=== PATIENT | female | born 1975 | race Caucasian/White ===

== ENCOUNTER → 2017-01-30 | Outpatient (CLI) | payer BC, OTHER ==
[~2017-01-30] MED LIST: CYCL10TA9 PO
--- NOTE | 2017-01-30 16:08 | Diagnostic Imaging Report ---
EXAMINATION: Bilateral diagnostic mammogram with a Computer Aided Detection (CAD) system. INDICATION: Palpable lump in the medial aspect of the left breast. COMPARISON: 12/16/2010. FINDINGS: The breasts are composed of heterogeneously dense parenchyma which may decrease mammographic sensitivity. The medial left breast palpable area was marked with no underlying abnormality seen. IMPRESSION: Dense breasts which may decrease mammographic sensitivity. An ultrasound evaluation is pending. ACR BI-RADS Category 0: Incomplete. (Needs additional imaging evaluation). Result letter will be mailed to the patient. Note: At least 10% of breast cancer is not imaged by mammography. Dictated by: Dictated on workstation # [id number]
--- NOTE | 2017-01-30 16:17 | Diagnostic Imaging Report ---
EXAMINATION: Bilateral breast ultrasound. INDICATION: Dense breasts. Palpable lump in the medial aspect of the left breast. FINDINGS: The retroareolar region and four quadrants of each breast were scanned with no suspicious or solid mass seen. At the 10 o'clock zone 7 cm from the nipple, there is a simple cyst measuring 1.2 cm in length. The palpable area in the medial aspect of the left breast was scanned with no underlying abnormality. IMPRESSION: No suspicious abnormality. Clinical followup of the palpable area is recommended. ACR BI-RADS Category 2: Benign findings. Result letter will be mailed to the patient. Note: At least 10% of breast cancer is not imaged by mammography. Dictated by: Dictated on workstation # [id number]
== END ==
LOC: RAD 08:11
PROVIDERS: ATTEND Nurse Practitioner Family
DX: N60.11 Diffuse cystic mastopathy of right breast (principal)
CPT/HCPCS: 77066

== ENCOUNTER 2017-05-11 11:20 | Emergency (ER) | payer BC ==
[~2017-05-11] VITALS: Ht 167.6 cm; Wt 47.6 kg
--- NOTE | 2017-05-11 11:37 | ED Abdominal Pain ---
General Chief Complaint: Abdominal/GI Problems Stated Complaint: LOWER ABD CRAMPS Nursing Triage Note: R sided abdomen pain, denies n/v/d Sepsis Screen: No Definite Risk Source of Information: Patient Exam Limitations: No Limitations History of Present Illness Time Seen By Provider: 11:35 Initial Comments To ER with right-sided abdominal pain colicky in nature that began this morning. This is in the lower abdomen. She states this began a few hours ago. No fevers or chills. No nausea or vomiting. No diarrhea. No dysuria. She' s had this pain about a year ago, it lasted for a couple hours and resolved on its own. She never had it evaluated. She does not have a regular physician. She is currently on her menstrual period. Severity/Quality: Moderate, Cramping Radiation: No Radiation Associated Symptoms: Denies Symptoms Allergies and Home Medications Allergies Coded Allergies: No Known Drug Allergies (Unverified , 10/12/13) Home Medications Cyclobenzaprine Hcl 10 Mg Tablet, 1 EACH PO Q8HR PRN, #7 Prescribed by: ALICIA HAGEN on 10/12/13 0977 Review of Systems Constitutional: see HPI EENTM: No Symptoms Reported Respiratory: No Symptoms Reported Cardiovascular: No Symptoms Reported Gastrointestinal: See HPI, Abdominal Pain Genitourinary: See HPI Musculoskeletal: no symptoms reported Skin: no symptoms reported Psychiatric/Neurological: No Symptoms Reported Endocrine: No Symptoms Reported Hematologic/Lymphatic: No Symptoms Reported Past Quairaf-Plyjoz-Rvghap Hx Patient Social History Alcohol Use: Denies Use Recreational Drug Use: No Recent Foreign Travel: No Contact w/Someone Who Travel: No Recent Infectious Disease Expo: No Immunizations Up To Date Date of Influenza Vaccine: Jun 07, 2013 Surgeries History of Surgeries: Yes (LAPROSCOPY FOR ADHESIONS) Respiratory History of Respiratory Disorde: No Cardiovascular History of Cardiac Disorders: No Neurological History of Neurological Disord: No Gastrointestinal History of Gastrointestinal Di: No Musculoskeletal History of Musculoskeletal Dis: No Endocrine History of Endocrine Disorders: No Cancer History of Cancer: No Psychosocial History of Psychiatric Problem: No Physical Exam Vital Signs VS - Last 72 Hours, by Label 05/11/17 11:30 Temp 98.9 Pulse 75 Resp 20 B/P (MAP) 145/92 Pulse Ox 99 Capillary Refill : Less Than 3 Seconds General Appearance: WD/WN, no apparent distress, moderate distress HEENT: PERRL/EOMI, normal ENT inspection Neck: non-tender, full range of motion Respiratory: normal breath sounds, no respiratory distress, no accessory muscle use Gastrointestinal: normal bowel sounds, soft, tenderness Extremities: normal range of motion, non-tender Neurologic/Psychiatric: alert, normal mood/affect, oriented x 3 Skin: normal color, warm/dry Progress/Results/Core Measures Results/Orders Lab Results Laboratory Tests Test 05/11/17 11:30 Range/Units White Blood Count 10.3 4.3-11.0 10^3/uL Red Blood Count 4.67 4.35-5.85 10^6/uL Hemoglobin 13.3 11.5-16.0 G/DL Hematocrit 41 35-52 % Mean Corpuscular Volume 87 80-99 FL Mean Corpuscular Hemoglobin 29 25-34 PG Mean Corpuscular Hemoglobin Concent 33 32-36 G/DL Red Cell Distribution Width 14.6 H 10.0-14.5 % Platelet Count 375 130-400 10^3/uL Mean Platelet Volume 9.9 7.4-10.4 FL Neutrophils (%) (Auto) 69 42-75 % Lymphocytes (%) (Auto) 21 12-44 % Monocytes (%) (Auto) 8 0-12 % Eosinophils (%) (Auto) 2 0-10 % Basophils (%) (Auto) 1 0-10 % Neutrophils # (Auto) 7.1 1.8-7.8 X 10^3 Lymphocytes # (Auto) 2.2 1.0-4.0 X 10^3 Monocytes # (Auto) 0.8 0.0-1.0 X 10^3 Eosinophils # (Auto) 0.2 0.0-0.3 10^3/uL Basophils # (Auto) 0.1 0.0-0.1 10^3/uL Urine Color RED H Urine Clarity VERY CLOUDY H Urine pH 5 5-9 Urine Specific [place] 1.020 1.016-1.022 Urine Protein 3+ H NEGATIVE Urine Glucose (UA) NEGATIVE NEGATIVE Urine Ketones NEGATIVE NEGATIVE Urine Nitrite NEGATIVE NEGATIVE Urine Bilirubin NEGATIVE NEGATIVE Urine Urobilinogen NORMAL NORMAL MG/DL Urine Leukocyte Esterase 3+ H NEGATIVE Urine RBC (Auto) 5+ H NEGATIVE Urine RBC TNTC H /HPF Urine WBC 10-25 H /HPF Urine Squamous Epithelial Cells RARE /HPF Urine Crystals NONE /LPF Urine Bacteria TRACE /HPF Urine Casts NONE /LPF Urine Mucus NEGATIVE /LPF Urine Culture Indicated YES Urine Test NEGATIVE NEGATIVE Sodium Level 136 135-145 MMOL/L Potassium Level 4.3 3.6-5.0 MMOL/L Chloride Level 106 98-107 MMOL/L Carbon Dioxide Level 16 L 21-32 MMOL/L Anion Gap 14 5-14 MMOL/L Blood Urea Nitrogen 8 7-18 MG/DL Creatinine 0.71 0.60-1.30 MG/DL Estimat Glomerular Filtration Rate > 60 BUN/Creatinine Ratio 11 Glucose Level 106 H 70-105 MG/DL Calcium Level 9.2 8.5-10.1 MG/DL Total Bilirubin 0.2 0.1-1.0 MG/DL Aspartate Amino Transf (AST/SGOT) 23 5-34 U/L Alanine Aminotransferase (ALT/SGPT) 11 0-55 U/L Alkaline Phosphatase 101 40-136 U/L Total Protein 7.5 6.4-8.2 GM/DL Albumin 4.3 3.2-4.5 GM/DL My Orders Orders - ALICIA HAGEN APRN Cbc With Automated Diff (05/11/17 11:34) Comprehensive Metabolic Panel (05/11/17 11:34) Ua Culture If Indicated (05/11/17 11:34) Saline Lock/Iv-Start (05/11/17 11:34) Ketorolac Injection (Toradol Injection) (05/11/17 11:45) Fentanyl Injection (Sublimaze Injection (05/11/17 11:45) Ct Abd/Pelvis Wo(Kidney Stone) (05/11/17 11:34) Hcg,Qualitative Urine (05/11/17 11:37) Urine Culture (05/11/17 11:30) Medications Given in ED Current Medications Medications Dose Ordered Sig/Fritz Route Start Time Stop Time Status Last Admin Dose Admin Fentanyl Citrate 50 mcg ONCE ONCE IVP 05/11/17 11:45 05/11/17 11:46 DC 05/11/17 11:57 50 MCG Ketorolac Tromethamine 30 mg ONCE ONCE IVP 05/11/17 11:45 05/11/17 11:46 DC 05/11/17 11:57 30 MG Vital Signs/I&O Vital Sign - Last 12Hours 05/11/17 11:30 Temp 98.9 Pulse 75 Resp 20 B/P (MAP) 145/92 Pulse Ox 99 Blood Pressure Mean: 109 Diagnostic Imaging Diagonstic Imaging: CT Comments NAME: IFRAH FRANCOIS [facility] REC#: [id number] PT STATUS: REG ER : 1975 PHYSICIAN: ALICIA HAGEN APRN ADMIT DATE: 05/11/17/ER Draft Date of Exam:05/11/17 CT ABD/PELVIS WO(KIDNEY STONE) PROCEDURE: CT urinary tract, rule out kidney stone. TECHNIQUE: Multiple contiguous axial images were obtained through the abdomen and pelvis without the use of intravenous contrast. INDICATION: Right flank pain. FINDINGS: There are no opaque ureteral stones. There is punctate intrarenal stone within left lower pole calyx at 2 mm. The right kidney is without calculus. No perinephric edema or fluid collection. There is no appendicitis and there is no diverticulitis. The uterus, adnexa and unopacified urinary bladder had a normal appearance. There is no abscess, hematoma or other fluid collection. The liver, spleen, adrenals, pancreas and gallbladder all unremarkable. The aorta is nonaneurysmal. There was no focal inflammatory process or evidence of edema. The osseous structures nonacute. No pneumatosis or free air. IMPRESSION: Left-sided intrarenal stone, no hydronephrosis or opaque ureteral calculi. No focal inflammatory process, obstructive features or acute abnormalities identified. Dictated on workstation # [id number] Dict: 05/11/17 1157 Trans: 05/11/17 1206 [id number] Interpreted by: SHAE LESTER Electronically signed by: Departure Impression Impression: Primary Impression: Urinary tract infection Additional Impression: Abdominal cramping Disposition: 01 HOME, SELF-CARE Condition: Stable Departure-Patient Inst. Decision time for Depature: 12:09 Referrals: NO,LOCAL PHYSICIAN (PCP/Family) Primary Care Physician Patient Instructions: Urinary Tract Infection, Adult (DC) Add. Discharge Instructions: 1. Antibiotics as directed 2. Return to ER for any concerns 3. All discharge instructions reviewed with patient and/or family. Voiced understanding. Scripts Sulfamethoxazole/Trimethoprim (Bactrim Ds Tablet) 1 Each Tablet 1 EACH PO BID, #10 TAB Prov: ALICIA HAGEN APRN 05/11/17 Hydrocodone/Acetaminophen ([place] 5-325 Tablet) 1 Each Tablet 1 EACH PO Q4H Y for PAIN-SEVERE TO BREAKTHROUGH, #10 TAB Do not fill unless the Bactrim is also filled Prov: ALICIA HAGEN APRN 05/11/17 ALICIA HAGEN APRN May 11, 2017 11:36
[2017-05-11 11:40] LABS: BASOPHILS # (AUTO) 0.1 10^3/uL (0.0-0.1); BASOPHILS % (AUTO) 1 % (0-10); EOSINOPHILS # (AUTO) 0.2 10^3/uL (0.0-0.3); EOSINOPHILS % (AUTO) 2 % (0-10); LYMPHOCYTES # (AUTO) 2.2 X 10^3 (1.0-4.0); LYMPHOCYTES % (AUTO) 21 % (12-44); MEAN CORPUSCULAR HEMOGLOBIN 29 PG (25-34); MEAN CORPUSCULAR HGB CONC 33 G/DL (32-36); MEAN CORPUSCULAR VOLUME 87 FL (80-99); MEAN PLATELET VOLUME 9.9 FL (7.4-10.4); MONOCYTES # (AUTO) 0.8 X 10^3 (0.0-1.0); MONOCYTES % (AUTO) 8 % (0-12); NEUTROPHILS # (AUTO) 7.1 X 10^3 (1.8-7.8); NEUTROPHILS % (AUTO) 69 % (42-75); PLATELET COUNT 375 10^3/uL (130-400); RED BLOOD COUNT 4.67 10^6/uL (4.35-5.85); RED CELL DISTRIBUTION WIDTH 14.6 % (10.0-14.5); WHITE BLOOD COUNT 10.3 10^3/uL (4.3-11.0)
[2017-05-11 11:41] LABS: BILIRUBIN,URINE NEGATIVE (NEGATIVE); KETONES,URINE NEGATIVE (NEGATIVE); LEUKOCYTE ESTERASE ,URINE 3+ (NEGATIVE); NITRITE,URINE NEGATIVE (NEGATIVE); PH,URINE 5 (5-9); PROTEIN,URINE 3+ (NEGATIVE); UROBILINOGEN,URINE NORMAL (NORMAL)
[2017-05-11] MEDS ORDERED: fentaNYL INJECTION 100 MCG/2 ML AMP IVP ONE (11:45)
[2017-05-11] MEDS ORDERED: KETOROLAC 30 MG/ML VIAL IVP ONE (11:45)
[2017-05-11 11:48] LABS: SQUAMOUS EPITHELIAL CELL,UR RARE /HPF
[2017-05-11 12:05] LABS: ALANINE AMINOTRANSFERASE 11 U/L (0-55); ALBUMIN 4.3 GM/DL (3.2-4.5); ANION GAP 14 MMOL/L (5-14); ASPARTATE AMINO TRANSFERASE 23 U/L (5-34); BILIRUBIN,TOTAL 0.2 MG/DL (0.1-1.0); BLOOD UREA NITROGEN 8 MG/DL (7-18); BUN/CREATININE RATIO 11; CALCIUM 9.2 MG/DL (8.5-10.1); CARBON DIOXIDE 16 MMOL/L (21-32); CHLORIDE 106 MMOL/L (98-107); CREATININE SERUM 0.71 MG/DL (0.60-1.30); GFR ESTIMATED > 60; GLUCOSE 106 MG/DL (70-105); POTASSIUM 4.3 MMOL/L (3.6-5.0); SODIUM 136 MMOL/L (135-145); TOTAL PROTEIN 7.5 GM/DL (6.4-8.2)
--- NOTE | 2017-05-11 12:06 | Diagnostic Imaging Report ---
PROCEDURE: CT urinary tract, rule out kidney stone. TECHNIQUE: Multiple contiguous axial images were obtained through the abdomen and pelvis without the use of intravenous contrast. INDICATION: Right flank pain. FINDINGS: There are no opaque ureteral stones. There is punctate intrarenal stone within left lower pole calyx at 2 mm. The right kidney is without calculus. No perinephric edema or fluid collection. There is no appendicitis and there is no diverticulitis. The uterus, adnexa and unopacified urinary bladder had a normal appearance. There is no abscess, hematoma or other fluid collection. The liver, spleen, adrenals, pancreas and gallbladder all unremarkable. The aorta is nonaneurysmal. There was no focal inflammatory process or evidence of edema. The osseous structures nonacute. No pneumatosis or free air. IMPRESSION: Left-sided intrarenal stone, no hydronephrosis or opaque ureteral calculi. No focal inflammatory process, obstructive features or acute abnormalities identified. Dictated by: Dictated on workstation # [id number]
[2017-05-11] MEDS ORDERED: SULF1TAB35 PO (12:11)
[2017-05-11] MEDS ORDERED: HYDR-757 PO (12:11)
[2017-05-11] MEDS ORDERED: morphine INJ 10 MG/ML 1ML (SYR OR VIAL) IVP ONE (12:30)
[2017-05-11] MEDS ORDERED: TRIM/SULFAMETH 160/800 (SEPTRA DS) TAB PO ONE (12:30)
[2017-05-11 12:31] VITALS: BP 142/90
== END 2017-05-11 12:30 | disposition home or self-care (01) ==
LOC: EDUNIT# 11:20 → ER 11:21
DX: N39.0 Urinary tract infection, site not specified (principal)
CPT/HCPCS: 36415; 74176; 80053; 81000; 84703; 85025; 87088; 96374; 96375

== ENCOUNTER → 2017-05-21 | Outpatient (CLI) | payer BC ==
[~2017-05-21] MED LIST changes: +HYDR-757 PO; +SULF1TAB35 PO
--- NOTE | 2017-05-21 19:52 | Diagnostic Imaging Report ---
Transabdominal and transvaginal pelvic ultrasound. INDICATION: Pelvic pain. FINDINGS: The uterus is 7.5 x 4.7 x 4.2 cm. The endometrial stripe is 9 mm in thickness. No focal masses are identified. The right ovary is 2.3 x 3.3 x 2.3 cm. The left ovary is 3.1 x 2.2 x 2.8 cm. Arterial and venous waveforms are demonstrated in both ovaries. Dominant follicle measuring 1.6 cm in the left ovary is seen. No concerning masses are identified. No significant free fluid or fluid collection in the abdomen or pelvis seen. IMPRESSION: Unremarkable exam. Dictated by: Dictated on workstation # [id number]
== END ==
LOC: RAD 13:58
PROVIDERS: ATTEND Nurse Practitioner Family
DX: R10.2 Pelvic and perineal pain (principal)
CPT/HCPCS: 76830; 76856

== ENCOUNTER 2018-01-03 14:07 | Emergency (ER) | payer BC ==
[~2018-01-03] VITALS: Ht 167.6 cm; Wt 48.1 kg
[2018-01-03 14:41] LABS: BILIRUBIN,URINE NEGATIVE (NEGATIVE); CLARITY,URINE CLEAR; COLOR,URINE YELLOW; GLUCOSE, URINE (UA) NEGATIVE (NEGATIVE); KETONES,URINE NEGATIVE (NEGATIVE); LEUKOCYTE ESTERASE ,URINE NEGATIVE (NEGATIVE); NITRITE,URINE NEGATIVE (NEGATIVE); PH,URINE 5 (5-9); PROTEIN,URINE NEGATIVE (NEGATIVE); UROBILINOGEN,URINE NORMAL (NORMAL)
[2018-01-03] MEDS ORDERED: TRAZ100T92 (14:42)
[2018-01-03] MEDS ORDERED: OXYB5TAB9 (14:42)
[2018-01-03 14:47] LABS: BACTERIA,URINE TRACE /HPF; SQUAMOUS EPITHELIAL CELL,UR 0-2 /HPF
--- NOTE | 2018-01-03 15:53 | ED GU-Female ---
General Chief Complaint: -Female Stated Complaint: FREQUENT URINATION, BURNING/IRRITATION, BACK PAIN Nursing Triage Note: ARRIVED VIA AMB TO ROOM 03. COMPLAINS OF BACK PAIN WITH FREQUENT URINATION WITH BURNING. Nursing Sepsis Screen: No Definite Risk Source: patient Exam Limitations: no limitations History of Present Illness Date Seen by Provider: Jan 03, 2018 Time Seen by Provider: 15:48 Initial Comments The patient is a 42-year-old white female who presents with a several week history of dysuria and frequency. She has seen her provider twice and had been placed on nasogastric her son and also given treatment for yeast. The Azo Gantrisin seemed to help but only briefly. She has had 2 previous UAs both of which showed no evidence of infection. She had a Pap smear 6 months ago which was normal. There has been no blood. Timing/Duration: getting worse Severity/Quality: moderate Allergies and Home Medications Allergies Coded Allergies: No Known Drug Allergies (Unverified , 10/12/13) Patient Home Medication List Home Medication List Reviewed: Yes Review of Systems Constitutional: see HPI, other (she conveys a sense of desperation) EENTM: no symptoms reported Respiratory: no symptoms reported Cardiovascular: no symptoms reported Gastrointestinal: no symptoms reported Genitourinary: burning, dysuria, frequency, urgency Musculoskeletal: back pain (in the area of the left sacroiliac joint) Skin: no symptoms reported Psychiatric/Neurological: No Symptoms Reported Endocrine: No Symptoms Reported Hematologic/Lymphatic: No Symptoms Reported Past Iylqine-Orqaof-Hchnbl Hx Patient Social History Recent Foreign Travel: No Contact w/Someone Who Travel: No Recent Infectious Disease Expo: No Immunizations Up To Date Date of Influenza Vaccine: Jun 07, 2013 Past Medical History Surgeries: Yes (LAPROSCOPY FOR ADHESIONS) Respiratory: No Cardiac: No Neurological: No Genitourinary: No Gastrointestinal: No Musculoskeletal: No Endocrine: No HEENT: No Cancer: No Did You Recieve Any Treatments: No Psychosocial: No Integumentary: No Physical Exam Vital Signs Vital Signs - First Documented 01/03/18 14:30 Temp 97.6 Pulse 79 Resp 18 B/P (MAP) 149/90 (109) Pulse Ox 100 O2 Delivery Room Air Capillary Refill : Less Than 3 Seconds General Appearance: mild distress HEENT: normal ENT inspection Neck: full range of motion Cardiovascular: normal peripheral pulses, regular rate, rhythm, no edema, no gallop, no JVD, no murmur Respiratory: chest non-tender, lungs clear, normal breath sounds, no respiratory distress, no accessory muscle use, respiratory distress Gastrointestinal: normal bowel sounds, non tender, soft, no organomegaly Back: normal inspection Extremities: normal range of motion, non-tender, normal inspection, no pedal edema, no calf tenderness, normal capillary refill, pelvis stable Neurologic/Psychiatric: foundry tender II-XII nml as tested, no motor/sensory deficits, alert, normal mood/affect, oriented x 3 Skin: normal color, warm/dry, cyanosis, cool, diaphoresis, pallor Progress/Results/Core Measures Suspected Sepsis Recent Fever Within 48 Hours: No Infection Criteria Present: Suspected New Infection New/Unexplained Altered Menta: No Sepsis Screen: No Definite Risk SIRS Temperature:97.6 Pulse: 79 Respiratory Rate: 18 Laboratory Tests 01/03/18 16:19: White Blood Count 8.7 Blood Pressure 149 /90 Mean: 109 Laboratory Tests 01/03/18 16:19: Creatinine 0.74, Platelet Count 397, Total Bilirubin 0.2 Results/Orders Lab Results Laboratory Tests Test 01/03/18 14:30 01/03/18 16:19 Range/Units Urine Color YELLOW Urine Clarity CLEAR Urine pH 5 5-9 Urine Specific [place] 1.010 L 1.016-1.022 Urine Protein NEGATIVE NEGATIVE Urine Glucose (UA) NEGATIVE NEGATIVE Urine Ketones NEGATIVE NEGATIVE Urine Nitrite NEGATIVE NEGATIVE Urine Bilirubin NEGATIVE NEGATIVE Urine Urobilinogen NORMAL NORMAL MG/DL Urine Leukocyte Esterase NEGATIVE NEGATIVE Urine RBC (Auto) NEGATIVE NEGATIVE Urine RBC NONE /HPF Urine WBC NONE /HPF Urine Squamous Epithelial Cells 0-2 /HPF Urine Crystals NONE /LPF Urine Bacteria TRACE /HPF Urine Casts NONE /LPF Urine Mucus NEGATIVE /LPF Urine Culture Indicated NO White Blood Count 8.7 4.3-11.0 10^3/uL Red Blood Count 4.81 4.35-5.85 10^6/uL Hemoglobin 13.8 11.5-16.0 G/DL Hematocrit 42 35-52 % Mean Corpuscular Volume 87 80-99 FL Mean Corpuscular Hemoglobin 29 25-34 PG Mean Corpuscular Hemoglobin Concent 33 32-36 G/DL Red Cell Distribution Width 16.1 H 10.0-14.5 % Platelet Count 397 130-400 10^3/uL Mean Platelet Volume 9.8 7.4-10.4 FL Neutrophils (%) (Auto) 66 42-75 % Lymphocytes (%) (Auto) 21 12-44 % Monocytes (%) (Auto) 11 0-12 % Eosinophils (%) (Auto) 2 0-10 % Basophils (%) (Auto) 1 0-10 % Neutrophils # (Auto) 5.7 1.8-7.8 X 10^3 Lymphocytes # (Auto) 1.8 1.0-4.0 X 10^3 Monocytes # (Auto) 0.9 0.0-1.0 X 10^3 Eosinophils # (Auto) 0.2 0.0-0.3 10^3/uL Basophils # (Auto) 0.0 0.0-0.1 10^3/uL Sodium Level 138 135-145 MMOL/L Potassium Level 3.9 3.6-5.0 MMOL/L Chloride Level 103 98-107 MMOL/L Carbon Dioxide Level 25 21-32 MMOL/L Anion Gap 10 5-14 MMOL/L Blood Urea Nitrogen 7 7-18 MG/DL Creatinine 0.74 0.60-1.30 MG/DL Estimat Glomerular Filtration Rate > 60 BUN/Creatinine Ratio 9 Glucose Level 102 70-105 MG/DL Calcium Level 9.5 8.5-10.1 MG/DL Total Bilirubin 0.2 0.1-1.0 MG/DL Aspartate Amino Transf (AST/SGOT) 16 5-34 U/L Alanine Aminotransferase (ALT/SGPT) 9 0-55 U/L Alkaline Phosphatase 102 40-136 U/L Total Protein 7.8 6.4-8.2 GM/DL Albumin 4.4 3.2-4.5 GM/DL My Orders Orders - MERLIN STEWART MD Ua Culture If Indicated (01/03/18 14:17) Ct Abdomen/Pelvis Wo (01/03/18 15:56) Cbc With Automated Diff (01/03/18 15:56) Comprehensive Metabolic Panel (01/03/18 15:56) Vital Signs/I&O 01/03/18 14:30 Temp 97.6 Pulse 79 Resp 18 B/P (MAP) 149/90 (109) Pulse Ox 100 O2 Delivery Room Air Capillary Refill : Less Than 3 Seconds Blood Pressure Mean: 109 Departure Communication (Admissions) Blood workup was basically normal as was the UA. CT scan showed only ovarian cyst and small amount of fluid in the pelvis. Impression Primary Impression: dysuria Disposition: 01 HOME, SELF-CARE Condition: Stable/Unchanged Departure-Patient Inst. Decision time for Depature: 16:58 Referrals: DEANA FRIAS MD (PCP/Family) Primary Care Physician Add. Discharge Instructions: Take Pyridium as directed. If symptoms persist consider consultation with gynecology and urology. Scripts Phenazopyridine HCl (Pyridium) 200 Mg Tablet 1 TAB PO 3 times a day, #10 Prov: MERLIN STEWART MD 01/03/18 MERLIN STEWART MD Jan 03, 2018 15:53
[2018-01-03 16:31] LABS: BASOPHILS % (AUTO) 1 % (0-10); EOSINOPHILS # (AUTO) 0.2 10^3/uL (0.0-0.3); EOSINOPHILS % (AUTO) 2 % (0-10); HEMATOCRIT 42 % (35-52); HEMOGLOBIN 13.8 G/DL (11.5-16.0); LYMPHOCYTES # (AUTO) 1.8 X 10^3 (1.0-4.0); LYMPHOCYTES % (AUTO) 21 % (12-44); MEAN CORPUSCULAR HEMOGLOBIN 29 PG (25-34); MEAN CORPUSCULAR HGB CONC 33 G/DL (32-36); MEAN CORPUSCULAR VOLUME 87 FL (80-99); MEAN PLATELET VOLUME 9.8 FL (7.4-10.4); MONOCYTES # (AUTO) 0.9 X 10^3 (0.0-1.0); MONOCYTES % (AUTO) 11 % (0-12); NEUTROPHILS # (AUTO) 5.7 X 10^3 (1.8-7.8); NEUTROPHILS % (AUTO) 66 % (42-75); PLATELET COUNT 397 10^3/uL (130-400); RED BLOOD COUNT 4.81 10^6/uL (4.35-5.85); RED CELL DISTRIBUTION WIDTH 16.1 % (10.0-14.5); WHITE BLOOD COUNT 8.7 10^3/uL (4.3-11.0)
--- NOTE | 2018-01-03 16:36 | Diagnostic Imaging Report ---
TECHNIQUE: Multiple contiguous axial images were obtained through the abdomen and pelvis without the use of intravenous contrast. INDICATION: Pelvic pain radiating into the posterior aspect of the pelvis, burning with urination approximately 2 weeks. History of appendectomy. EXAMINATION: CT abdomen and pelvis without contrast, 01/03/18. COMPARISON: 05/11/2017 FINDINGS: The ureters are difficult to follow but no obvious distal ureteral stones are seen on either side. There is no hydronephrosis on either side. The right kidney is somewhat prominent compared to the left. However, this was also present on prior examination. A punctate stone in the left kidney nonobstructive in nature is also noted. Urinary bladder grossly unremarkable. The uterus demonstrates prominence as the canal is filled with fluid. Cystic changes in both adnexa likely due to ovarian cysts. Some of these findings, however, could represent the small bowel loops in the immediate region. There is minimal free fluid in the pelvis, likely physiologic. The remaining visualized abdominal viscera limited in evaluation due to lack of contrast but no gross abnormality is seen in the liver or spleen. The adrenal glands and pancreas unremarkable. The gallbladder is not seen. It could be markedly contracted or due to previous surgery, correlate clinically. The appendix is not visualized; however, no inflammation is seen in the right lower quadrant. If there is continued clinical concern or elevated white count, postcontrast imaging could further characterize the region. Osseous structures demonstrate no evidence for acute disease. Lung bases clear. IMPRESSION: 1. Kidneys demonstrate no acute process. No hydronephrosis or ureteral stones appreciated. If there is concern for process such as pyelonephritis, postcontrast imaging could better characterize. 2. Fluid in the endometrial canal, perhaps physiologic with a small amount of free fluid, likely physiologic as well. Cystic changes in the ovaries noted. Given the focal pelvic pain, sonographic characterization of the pelvis is recommended. 3. Appendix not seen. It is likely obscured by the adjacent small bowel loops. If there is concern for appendicitis, post IV contrast administration imaging recommended. Dictated by: Dictated on workstation # [id number]
[2018-01-03 16:48] LABS: ALANINE AMINOTRANSFERASE 9 U/L (0-55); ALBUMIN 4.4 GM/DL (3.2-4.5); ALKALINE PHOSPHATASE 102 U/L (40-136); BILIRUBIN,TOTAL 0.2 MG/DL (0.1-1.0); BUN/CREATININE RATIO 9; CALCIUM 9.5 MG/DL (8.5-10.1); CARBON DIOXIDE 25 MMOL/L (21-32); CHLORIDE 103 MMOL/L (98-107); CREATININE SERUM 0.74 MG/DL (0.60-1.30); GFR ESTIMATED > 60; GLUCOSE 102 MG/DL (70-105); POTASSIUM 3.9 MMOL/L (3.6-5.0); SODIUM 138 MMOL/L (135-145); TOTAL PROTEIN 7.8 GM/DL (6.4-8.2)
[2018-01-03] MEDS ORDERED: PHEN-640 PO (17:02)
[2018-01-03 17:08] VITALS: BP 149/90
== END 2018-01-03 17:08 | disposition home or self-care (01) ==
LOC: EDUNIT# 14:07 → ER 14:08
DX: R30.0 Dysuria (principal); Z98.890 Other specified postprocedural states
CPT/HCPCS: 36415; 74176; 80053; 81000; 85025; 99283

== ENCOUNTER 2018-01-06 14:10 | Emergency (ER) | payer BC ==
[~2018-01-06] VITALS: Ht 167.6 cm; Wt 48.1 kg
[~2018-01-06 14:10] MED LIST changes: +OXYB5TAB9; +PHEN-640 PO; +TRAZ100T92
[2018-01-06] MEDS ORDERED: LIDOCAINE 2% VISCOUS 15 ML UDC PO ONE (14:30)
[2018-01-06] MEDS ORDERED: ANTACID SUSP 30 ML UDC (MYLANTA) PO ONE (14:30)
--- NOTE | 2018-01-06 14:32 | ED Abdominal Pain ---
General Chief Complaint: Abdominal/GI Problems Stated Complaint: BURNING STOMACH Source of Information: Patient Exam Limitations: No Limitations History of Present Illness Date Seen by Provider: January 06, 2018 Time Seen by Provider: 14:30 Initial Comments To ER with burning sensation in the epigastric area intermittently since yesterday. She's been on Pyridium for some urinary discomfort. She was seen here on 01/03/18 for dysuria with a normal CBC, normal CMP, normal urinalysis. She is still on the Pyridium and states that her urinary symptoms have resolved. She denies bowel changes. She does report some nausea and vomiting. She also had a CT scan done 3 days ago which showed only an ovarian cyst with a small amount of pelvic free fluid. Timing/Duration: 1-2 Days Severity/Quality: Moderate Location: Epigastric Radiation: No Radiation Activities at Onset: None Associated Symptoms: Nausea/Vomiting Allergies and Home Medications Allergies Coded Allergies: No Known Drug Allergies (Unverified , 10/12/13) Home Medications Famotidine 20 Mg Tablet, 20 MG PO BID Prescribed by: ALICIA HAGEN on 01/06/18 1548 Ondansetron 8 Mg Tab.rapdis, 8 MG PO Q6H PRN for NAUSEA/VOMITING-1ST LINE Prescribed by: ALICIA AHGEN on 01/06/18 1624 Phenazopyridine HCl 200 Mg Tablet, 1 TAB PO 3 times a day Prescribed by: MERLIN STEWART on 01/03/18 1702 Patient Home Medication List Home Medication List Reviewed: Yes Review of Systems Constitutional: see HPI EENTM: No Symptoms Reported Respiratory: No Symptoms Reported Cardiovascular: No Symptoms Reported Gastrointestinal: See HPI, Abdominal Pain, Nausea Genitourinary: No Symptoms Reported Musculoskeletal: no symptoms reported Skin: no symptoms reported Endocrine: No Symptoms Reported Past Rgaqadz-Fzkfas-Ptvkwx Hx Patient Social History Recent Foreign Travel: No Contact w/Someone Who Travel: No Immunizations Up To Date Date of Influenza Vaccine: Jun 07, 2013 Past Medical History Surgeries: Yes (LAPROSCOPY FOR ADHESIONS) Respiratory: No Cardiac: No Neurological: No Genitourinary: No Gastrointestinal: No Musculoskeletal: No Endocrine: No HEENT: No Cancer: No Did You Recieve Any Treatments: No Psychosocial: No Integumentary: No Physical Exam Vital Signs Vital Signs - First Documented 01/06/18 14:19 Temp 98.1 Pulse 84 Resp 18 B/P (MAP) 162/108 (126) Pulse Ox 97 Capillary Refill : General Appearance: WD/WN, no apparent distress HEENT: PERRL/EOMI, normal ENT inspection Neck: non-tender, full range of motion Respiratory: no respiratory distress, no accessory muscle use Cardiovascular: regular rate, rhythm, no murmur Gastrointestinal: normal bowel sounds, soft, tenderness (Epigastric) Extremities: normal range of motion, non-tender Neurologic/Psychiatric: alert, normal mood/affect, oriented x 3 Progress/Results/Core Measures Lab Results Laboratory Tests Test 01/06/18 15:35 Range/Units White Blood Count 7.3 4.3-11.0 10^3/uL Red Blood Count 5.09 4.35-5.85 10^6/uL Hemoglobin 14.4 11.5-16.0 G/DL Hematocrit 44 35-52 % Mean Corpuscular Volume 86 80-99 FL Mean Corpuscular Hemoglobin 28 25-34 PG Mean Corpuscular Hemoglobin Concent 33 32-36 G/DL Red Cell Distribution Width 16.0 H 10.0-14.5 % Platelet Count 376 130-400 10^3/uL Mean Platelet Volume 9.7 7.4-10.4 FL Neutrophils (%) (Auto) 71 42-75 % Lymphocytes (%) (Auto) 14 12-44 % Monocytes (%) (Auto) 12 0-12 % Eosinophils (%) (Auto) 2 0-10 % Basophils (%) (Auto) 1 0-10 % Neutrophils # (Auto) 5.2 1.8-7.8 X 10^3 Lymphocytes # (Auto) 1.1 1.0-4.0 X 10^3 Monocytes # (Auto) 0.9 0.0-1.0 X 10^3 Eosinophils # (Auto) 0.2 0.0-0.3 10^3/uL Basophils # (Auto) 0.0 0.0-0.1 10^3/uL Sodium Level 140 135-145 MMOL/L Potassium Level 3.3 L 3.6-5.0 MMOL/L Chloride Level 104 98-107 MMOL/L Carbon Dioxide Level 27 21-32 MMOL/L Anion Gap 9 5-14 MMOL/L Blood Urea Nitrogen 3 L 7-18 MG/DL Creatinine 0.68 0.60-1.30 MG/DL Estimat Glomerular Filtration Rate > 60 BUN/Creatinine Ratio 4 Glucose Level 101 70-105 MG/DL Calcium Level 9.7 8.5-10.1 MG/DL Total Bilirubin 0.4 0.1-1.0 MG/DL Aspartate Amino Transf (AST/SGOT) 17 5-34 U/L Alanine Aminotransferase (ALT/SGPT) 8 0-55 U/L Alkaline Phosphatase 101 40-136 U/L Total Protein 8.1 6.4-8.2 GM/DL Albumin 4.5 3.2-4.5 GM/DL Lipase 16 8-78 U/L My Orders Orders - ALICIA HAGEN APRN Antacid Suspension (Mylanta Suspension (01/06/18 14:30) Lidocaine 2% Viscous 15 Ml (Xylocaine Vi (01/06/18 14:30) Cbc With Automated Diff (01/06/18 15:34) Comprehensive Metabolic Panel (01/06/18 15:34) Lipase (01/06/18 15:34) Ondansetron Oral Dissolve Tab (Zofran (01/06/18 16:20) Medications Given in ED Current Medications Medications Dose Ordered Sig/Fritz Route Start Time Stop Time Status Last Admin Dose Admin Al Hydrox/Mg Hydrox/Simethicone 30 ml ONCE ONCE PO 01/06/18 14:30 01/06/18 14:31 DC 01/06/18 14:40 30 ML Lidocaine HCl 15 ml ONCE ONCE PO 01/06/18 14:30 01/06/18 14:31 DC 01/06/18 14:40 15 ML Vital Signs/I&O 01/06/18 14:19 Temp 98.1 Pulse 84 Resp 18 B/P (MAP) 162/108 (126) Pulse Ox 97 Departure Communication (Admissions) No improvement after GI cocktail. We then proceeded with laboratory reevaluation as she just had this done 3 days ago. This was unremarkable. She reports that she still feels "awful" and very nauseous. Zofran ODT ordered here , I will add a prescription for Zofran at home, follow up with primary care. Impression Primary Impression: Epigastric abdominal pain Additional Impression: Nausea and vomiting Disposition: 01 HOME, SELF-CARE Condition: Stable Departure-Patient Inst. Decision time for Depature: 15:47 Referrals: DEANA FRIAS MD (PCP/Family) Primary Care Physician Patient Instructions: Acute Abdomen (Belly Pain), Adult (DC) Add. Discharge Instructions: 1. Return to ER for any concerns 2. Follow-up with your doctor next week 3. All discharge instructions reviewed with patient and/or family. Voiced understanding. Scripts Ondansetron (Zofran Odt) 8 Mg Tab.rapdis 8 MG PO Q6H PRN for NAUSEA/VOMITING-1ST LINE, #10 TAB Prov: ALICIA HAGEN APRN 01/06/18 Famotidine (Pepcid) 20 Mg Tablet 20 MG PO BID, #10 TAB Prov: ALICIA HAGEN APRN 01/06/18 ALICIA HGAEN APRN January 06, 2018 14:32
[2018-01-06] MEDS ORDERED: FAMO-119 PO (15:48)
[2018-01-06 15:49] LABS: BASOPHILS % (AUTO) 1 % (0-10); EOSINOPHILS # (AUTO) 0.2 10^3/uL (0.0-0.3); EOSINOPHILS % (AUTO) 2 % (0-10); HEMATOCRIT 44 % (35-52); HEMOGLOBIN 14.4 G/DL (11.5-16.0); LYMPHOCYTES # (AUTO) 1.1 X 10^3 (1.0-4.0); LYMPHOCYTES % (AUTO) 14 % (12-44); MEAN CORPUSCULAR HEMOGLOBIN 28 PG (25-34); MEAN CORPUSCULAR HGB CONC 33 G/DL (32-36); MEAN CORPUSCULAR VOLUME 86 FL (80-99); MEAN PLATELET VOLUME 9.7 FL (7.4-10.4); MONOCYTES # (AUTO) 0.9 X 10^3 (0.0-1.0); MONOCYTES % (AUTO) 12 % (0-12); NEUTROPHILS # (AUTO) 5.2 X 10^3 (1.8-7.8); NEUTROPHILS % (AUTO) 71 % (42-75); PLATELET COUNT 376 10^3/uL (130-400); RED BLOOD COUNT 5.09 10^6/uL (4.35-5.85); WHITE BLOOD COUNT 7.3 10^3/uL (4.3-11.0)
[2018-01-06 16:09] LABS: ALANINE AMINOTRANSFERASE 8 U/L (0-55); ALBUMIN 4.5 GM/DL (3.2-4.5); ALKALINE PHOSPHATASE 101 U/L (40-136); BILIRUBIN,TOTAL 0.4 MG/DL (0.1-1.0); BUN/CREATININE RATIO 4; CALCIUM 9.7 MG/DL (8.5-10.1); CARBON DIOXIDE 27 MMOL/L (21-32); CHLORIDE 104 MMOL/L (98-107); CREATININE SERUM 0.68 MG/DL (0.60-1.30); GFR ESTIMATED > 60; GLUCOSE 101 MG/DL (70-105); LIPASE 16 U/L (8-78); POTASSIUM 3.3 MMOL/L (3.6-5.0); SODIUM 140 MMOL/L (135-145); TOTAL PROTEIN 8.1 GM/DL (6.4-8.2)
[2018-01-06] MEDS ORDERED: ONDANSETRON 4 MG (ZOFRAN) ORAL DISSOLVE TAB ONE (16:20)
[2018-01-06] MEDS ORDERED: ONDA8TAB9 PO (16:24)
[2018-01-06 16:27] VITALS: BP 162/108
[2018-01-06] MEDS ORDERED: ONDANSETRON 4 MG (ZOFRAN) ORAL DISSOLVE TAB PO ONE (16:30)
--- OUTSIDE RECORDS SUMMARY | 2018-01-06 19:12 | XMS REPORT ---
Author Author DARYN ARANGO Organization 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439 Active 422148671 Problem Left wrist pain M25.532 Active 24742318 Problem Breast lump on left side at 9 o'clock position N63 Active 81952506 Problem HTN (hypertension) I10 Active 28793828 ALLERGIES No Known Allergies SOCIAL HISTORY Never Assessed PLAN OF CARE Activity Details Follow Up pending diagnostic mammogram Reason: VITAL SIGNS Height 65 in 2017-01-14 Weight 108.8 lbs 2017-01-14 Temperature 98.3 degrees Fahrenheit 2017-01-14 Heart Rate 80 bpm 2017-01-14 Respiratory Rate 18 2017-01-14 BMI 18.10 kg/m2 2017-01-14 Blood pressure systolic 119 mmHg 2017-01-14 Blood pressure diastolic 77 mmHg 2017-01-14 MEDICATIONS No Known Medications RESULTS Name Result Date Reference Range Mammogram Dx, Bilateral 2017-01-30 PROCEDURES No Known procedures IMMUNIZATIONS No Known Immunizations MEDICAL (GENERAL) HISTORY Type Description Date Surgical History appendectomy Surgical History lump removal- left breast- benign Surgical History laparscopy to remove scar tissue right ovary Hospitalization History surgeries
--- OUTSIDE RECORDS SUMMARY | 2018-01-06 19:12 | XMS REPORT ---
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 Role Phone DARYN ARANGO Unavailable PROBLEMS Type Condition ICD9-CM Code EJJ34-RB Code Onset Dates Condition Status SNOMED Code Problem Bladder spasms N32.89 Active 554531683 Problem Labile hypertension R09.89 Active 386834538 Problem Diffuse cystic mastopathy of right breast N60.11 Active 41773975309402338 Problem Ganglion cyst of wrist M67.439 Active 630131837 Problem Anxiety F41.9 Active 12422023 Problem Dysmenorrhea N94.6 Active 878679306 ALLERGIES No Known Allergies ENCOUNTERS Encounter Location Date Diagnosis [facility] [address] [address] January, [facility] [address] [address] Dec, [facility] [address] [place] [id number] [place] [address] Dec, Urine frequency R35.0 [facility] [address] [address] 18 Dec, 2017 Dysuria R30.0 and Bladder spasms N32.89 [facility] [address] [address] Dec, Anxiety F41.9 and Labile hypertension R09.89 [facility] [address] [address] Jun, Abdominal cramping R10.9 and Dysmenorrhea N94.6 [facility] [address] [place] [address] 15 May, 2017 [place] [address] [address] [id number] [place] [address] 06 May, 2017 Pelvic pain R10.2 and Routine gynecological examination Z01.419 [place] [address] [address] 06 May, 2017 Lower abdominal pain R10.30 [place] [address] [address] January, Breast lump on left side at 9 o'clock position N63 and Diffuse cystic mastopathy of right breast N60.11 [place] [address] [address] Nov, [place] [address] [address] Nov, HTN (hypertension) I10 [place] [address] [address] Nov, Lesion of lip K13.0 ; Left wrist pain M25.532 ; HTN ( hypertension) I10 and Ganglion cyst of wrist M67.439 [place] [address] [address] [id number] [place] [address] Oct, Lesion of lip K13.0 [place] [address] [address] [id number] [place] [address] Oct, Lesion of lip K13.0 ; Left wrist pain M25.532 and High blood pressure (not hypertension) R03.0 [place] [address] [id number] [place] [address] Dec, [place] [address] [address] Dec, [place] [address] [place] [address] [id number] [place] [address] Apr, [place] [address] [id number] Oct, [facility] [address] [facility] [id number] [id number] Oct, [facility] [address] [facility] [id number] [id number] Oct, [facility] [address] [facility] [place] [id number] [address] Nov, IMMUNIZATIONS No Known Immunizations SOCIAL HISTORY Never Assessed REASON FOR VISIT Abdominal pain/vaginal bleeding-states she has been bleeding for 10 days, in thursday was in very high amounts of pain and went to the ED who told her that she had a UTI, CT showed normal appendix, liver, and kidneys look good but pt does not have an appendix, pt have pain right above right ovary, hx of cyst on that ovary, no pelvic US was ordered., Pt traged this am by Penny Mejia RN, Hospital records requested, HCG and UA collected PLAN OF CARE Activity Details Follow Up after us with pcp 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 Reason:pelvic pain VITAL SIGNS Height 65 in 2017-05-13 Weight 111.4 lbs 2017-05-13 Temperature 98.5 degrees Fahrenheit 2017-05-13 Heart Rate 82 bpm 2017-05-13 Respiratory Rate 18 2017-05-13 BMI 18.54 kg/m2 2017-05-13 Blood pressure systolic 134 mmHg 2017-05-13 Blood pressure diastolic 80 mmHg 2017-05-13 MEDICATIONS Medication Instructions Dosage Frequency Start Date End Date Duration Status Hydrocodone-Acetaminophen 5-325 MG Orally 2 times a day 1 tablet as needed 12h Active Bactrim DS 800-160 MG Orally 2 times a day 1 tablet 12h Active RESULTS Name Result Date Reference Range TEST, URINE (IN HOUSE) 2017-05-13 RESULTS Negative Lot # [id number] Control + Exp date 11/04/2018 TRICHOMONAS (IN HOUSE) 2017-05-13 TRICHOMONAS Negative Control + Lot # [id number] Exp date 04/2018 UA LONG DIP (IN HOUSE) 2017-05-13 Lot # [id number] Exp date 05/07/2018 Clarity Clear Color yellow Odor none GLU Negative DAE Negative KET Negative SG 1.005 BLO 2+ pH 5.0 Protein Negative URO 0.2 NIT negative CARLINE Negative Lot # Exp date BACTERIAL VAGINOSIS (IN HOUSE) 2017-05-13 RESULTS Negative Control + Lot # [id number] Exp date 01/2018 CULTURE, GENITAL 2017-05-13 Genital Culture, Routine Final report Result 1 PAP TEST W/ HPV REGARDLESS 2017-05-13 DIAGNOSIS: Specimen adequacy: Clinician provided ICD10: Performed by: . . Note: HPV, high-risk Negative Negative PDF Report 2017-05-[address] [facility] Ultrasound : Pelvic, COMPLETE (REFLEX CPT-[id number]) 2017-05-21 GC/CHLAM PROBE (STATE) 2017-05-13 CHLAMYDIA negative GC negative PROCEDURES Procedure Date Ordered Result Body Site URINE TEST May 13, 2017 URINALYSIS, AUTO, W/O SCOPE May 13, 2017 TRICHOMONAS ASSAY W/OPTIC May 13, 2017 Bacterial Vaginosis In House May 13, 2017 CULTURE, BACTERIA, OTHER May 13, 2017 No Charge May 13, 2017 SPECIMEN HANDLING May 13, 2017 INSTRUCTIONS MEDICATIONS ADMINISTERED No Known Medications MEDICAL (GENERAL) HISTORY Type Description Date Surgical History appendectomy Surgical History lump removal- left breast- benign Surgical History laparscopy to remove scar tissue right ovary Hospitalization History surgeries
--- OUTSIDE RECORDS SUMMARY | 2018-01-06 19:13 | XMS REPORT ---
Author Author DARYN ARANGO Organization [facility] Address [address] [place] [address] Care Team Providers Care Developer Automatic Name Role Phone DARYN ARANGO Unavailable PROBLEMS Type Condition ICD9-CM Code [id number] Code Onset Dates Condition Status SNOMED Code Problem Bladder spasms N32.89 Active 504053365 Problem Labile hypertension R09.89 Active 874048685 Problem Diffuse cystic mastopathy of right breast N60.11 Active 62595875020329092 Problem Ganglion cyst of wrist M67.439 Active 824687307 Problem Anxiety F41.9 Active 99381211 Problem Dysmenorrhea N94.6 Active 600703569 ALLERGIES No Information ENCOUNTERS Encounter Location Date Diagnosis [facility] [address] [address] January, [facility] [address] [address] Dec, [facility] IN [facility] [id number] [place] [address] Dec, Urine frequency R35.0 [facility] IN [facility] [address] [address] Dec, Dysuria R30.0 and Bladder spasms N32.89 [facility] [address] [address] Dec, Anxiety F41.9 and Labile hypertension R09.89 [facility] IN [facility] [address] [address] Jun, Abdominal cramping R10.9 and Dysmenorrhea N94.6 [facility] [address] [address] 15 May, 2017 [place] [address] [place] [address] [id number] [place] [address] May, Pelvic pain R10.2 and Routine gynecological examination Z01.419 [place] [address] [place] [id number] [place] [address] 06 May, 2017 Lower abdominal pain R10.30 [place] [address] [address] January, Breast lump on left side at 9 o'clock position N63 and Diffuse cystic mastopathy of right breast N60.11 [place] [address] [address] Nov, [place] [address] [address] Nov, HTN (hypertension) I10 [place] [address] [address] Nov, Lesion of lip K13.0 ; Left wrist pain M25.532 ; HTN ( hypertension) I10 and Ganglion cyst of wrist M67.439 [place] [address] [place] [address] [id number] [place] [address] Oct, Lesion of lip K13.0 [place] [address] [place] [address] [id number] [place] [address] Oct, Lesion of lip K13.0 ; Left wrist pain M25.532 and High blood pressure (not hypertension) R03.0 [place] [address] [place] [address] [id number] [place] [address] Dec, [place] [address] [address] Dec, [place] [address] [place] [address] [id number] [place] [address] Apr, [address] [id number] Oct, [facility] [address] [facility] [id number] [id number] Oct, [facility] [address] [facility] [id number] [place] [id number] Oct, [facility] [address] [facility] [id number] [place] [id number] Nov, IMMUNIZATIONS No Known Immunizations SOCIAL HISTORY Never Assessed 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
--- OUTSIDE RECORDS SUMMARY | 2018-01-06 19:13 | XMS REPORT ---
Author Author MARIPOSA Martínez Organization [facility] Address [address] [place] [address] Care Team Providers Care Care Transitions Nurse Name Role Phone Mauricio MARIPOSA Unavailable PROBLEMS Type Condition ICD9-CM Code MIX29-FN Code Onset Dates Condition Status SNOMED Code Problem Bladder spasms N32.89 Active 144785519 Problem Labile hypertension R09.89 Active 962829633 Problem Diffuse cystic mastopathy of right breast N60.11 Active 79285591978925335 Problem Ganglion cyst of wrist M67.439 Active 655510718 Problem Anxiety F41.9 Active 59457383 Problem Dysmenorrhea N94.6 Active 707883173 ALLERGIES No Information ENCOUNTERS Encounter Location Date Diagnosis [place] [id number] [address] January, [facility] [address] [address] 18 Dec, 2017 Dysuria R30.0 and Bladder spasms N32.89 [place] [address] [address] 16 Dec, 2017 Anxiety F41.9 and Labile hypertension R09.[address] [facility] [address] [address] 02 Jun, 2017 Abdominal cramping R10.9 and Dysmenorrhea N94.6 [place] [address] [address] 15 May, 2017 [place] [address] [address] 06 May, 2017 Pelvic pain R10.2 and Routine gynecological examination Z01.419 [place] [address] [place] [id number] [place] [address] May, Lower abdominal pain R10.30 [place] [address] [address] January, Breast lump on left side at 9 o'clock position N63 and Diffuse cystic mastopathy of right breast N60.11 [place] [address] [address] Nov, [place] [address] [address] Nov, HTN (hypertension) I10 [place] [address] [address] Nov, Lesion of lip K13.0 ; Left wrist pain M25.532 ; HTN ( hypertension) I10 and Ganglion cyst of wrist M67.439 [place] [address] [place] [id number] [place] [address] Oct, Lesion of lip K13.0 [place] [address] [place] [id number] [place] [address] Oct, Lesion of lip K13.0 ; Left wrist pain M25.532 and High blood pressure (not hypertension) R03.0 [place] [address] [place] [id number] [place] [address] Dec, [place] [address] [place] [id number] [place] [address] Dec, [facility] [address] [place] [id number] [place] [address] Apr, [place] [id number] [place] [id number] Oct, [facility] [address] [place] [id number] [place] [address] Oct, [place] [id number] [place] [id number] Oct, [facility] [address] [facility] [id number] [place] [id number] Nov, IMMUNIZATIONS No Known Immunizations SOCIAL HISTORY Never Assessed REASON FOR VISIT Triage- pt states she has been to ER, also been trying to get in to see Mariposa for Vaginal bleeding for last 10 days, states she is saturating a pad every 3 hours and having a lot of cramping- Ran UA and HCG, both negative, got pt in to see Juani mitchell at 6:40, pt states she does not have gas to come back, gave pt a gas card and instructed if bleeding is more that saturating a pad every hour she must go to ER, pt voiced understanding- Penny Mejia RN, Notified Aurelio DE that pt would be coming in this evening, Lab results placed in that visit- Penny Mejia RN PLAN OF CARE VITAL SIGNS MEDICATIONS Unknown Medications RESULTS No Results PROCEDURES No Known procedures INSTRUCTIONS MEDICATIONS ADMINISTERED No Known Medications MEDICAL (GENERAL) HISTORY Type Description Date Surgical History appendectomy Surgical History lump removal- left breast- benign Surgical History laparscopy to remove scar tissue right ovary Hospitalization History surgeries
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
== END 2018-01-06 16:27 | disposition home or self-care (01) ==
LOC: EDUNIT# 14:10 → ER 14:14
DX: R10.13 Epigastric pain (principal); R11.2 Nausea with vomiting, unspecified
CPT/HCPCS: 36415; 80053; 83690; 85025; 99283

== ENCOUNTER 2019-05-15 00:38 | Emergency (ER) | payer BC ==
[~2019-05-15] VITALS: Ht 167.6 cm; Wt 42.6 kg
[~2019-05-15 00:38] MED LIST changes: +FAMO-119 PO; +HYDR-4226 PO; -HYDR-757 PO; +ONDA8TAB9 PO; +TRAZ-190; -TRAZ100T92
[2019-05-15] MEDS ORDERED: morphine INJ 10 MG/ML 1ML (SYR OR VIAL) IM STA (01:08)
[2019-05-15] MEDS ORDERED: KETOROLAC 60 MG/2 ML VIAL IM STA (01:08)
[2019-05-15] MEDS ORDERED: ORPHENADRINE 60 MG/2 ML (NORFLEX) AMP IM STA (01:08)
[2019-05-15 01:20] LABS: BILIRUBIN,URINE NEGATIVE (NEGATIVE); CLARITY,URINE CLEAR; COLOR,URINE YELLOW; GLUCOSE, URINE (UA) NEGATIVE (NEGATIVE); KETONES,URINE NEGATIVE (NEGATIVE); LEUKOCYTE ESTERASE ,URINE NEGATIVE (NEGATIVE); NITRITE,URINE NEGATIVE (NEGATIVE); PH,URINE 5 (5-9); PROTEIN,URINE NEGATIVE (NEGATIVE); UROBILINOGEN,URINE NORMAL (NORMAL)
[2019-05-15] MEDS ORDERED: KETOROLAC 30 MG/ML VIAL IVP STA (01:22)
[2019-05-15] MEDS ORDERED: fentaNYL INJECTION 100 MCG/2 ML AMP IVP STA (01:22)
[2019-05-15] MEDS ORDERED: NS IV 1000 ML 1,000 ML IV ONE (01:22)
[2019-05-15 01:34] LABS: BASOPHILS % (AUTO) 1 % (0-10); EOSINOPHILS # (AUTO) 0.1 10^3/uL (0.0-0.3); EOSINOPHILS % (AUTO) 1 % (0-10); HEMATOCRIT 39 % (35-52); HEMOGLOBIN 12.8 G/DL (11.5-16.0); LYMPHOCYTES # (AUTO) 1.2 X 10^3 (1.0-4.0); LYMPHOCYTES % (AUTO) 20 % (12-44); MEAN CORPUSCULAR HEMOGLOBIN 27 PG (25-34); MEAN CORPUSCULAR HGB CONC 33 G/DL (32-36); MEAN CORPUSCULAR VOLUME 83 FL (80-99); MEAN PLATELET VOLUME 9.9 FL (7.4-10.4); MONOCYTES # (AUTO) 0.9 X 10^3 (0.0-1.0); MONOCYTES % (AUTO) 16 % (0-12); NEUTROPHILS # (AUTO) 3.8 X 10^3 (1.8-7.8); NEUTROPHILS % (AUTO) 63 % (42-75); PLATELET COUNT 259 10^3/uL (130-400); RED CELL DISTRIBUTION WIDTH 15.7 % (10.0-14.5); WHITE BLOOD COUNT 5.9 10^3/uL (4.3-11.0)
[2019-05-15 01:35] LABS: BACTERIA,URINE NEGATIVE /HPF; RBC,URINE >100 /HPF
--- NOTE | 2019-05-15 01:36 | ED Back Pain ---
General Chief Complaint: Back Problems Stated Complaint: BACK PAIN Nursing Triage Note: C/O WORSENING BACK PAIN SINCE THURSDAY Nursing Sepsis Screen: No Definite Risk (SAURABH PERALES STUDENT) History of Present Illness Date Seen by Provider: May 15, 2019 Time Seen by Provider: 01:15 Initial Comments The patient is a WD/WD thin 43 y/o woman who presents with a chief complaint of mid thoracic back pain. She states that the pain began on with a headache and mild back pain and has progressed to 05/17. The patient describes the pain as dull/achy with electrical shooting pains that radiate down her arms and legs. She denies any loss of sensation. She denies any loss of bowel or bladder function. She cannot recall any recent trauma or overuse that may have led to injury. She reports that she has had multiple episodes of back pain previously but never this severe. She states that she had been getting relief from rest and ice but now nothing provides relief. She denies nausea, vomiting, fevers, or visual changes. Timing/Duration: 2-3 Days Severity: Severe Pain/Injury Location: Back Method of Injury: Unknown Modifying Factors: Worse With Movement Associated Symptoms: No fever, No sensory/motor loss, No loss of bladder control, No loss of bowel control (SAURABH PERALES STUDENT) Location: Lumbar Spine, T-Spine, Other (intra-abdominal epigastric region) Timing/Duration: 2-3 Days Severity: Moderate, Severe Pain/Injury Location: Back Radiation: Other (upper and lower back) Method of Injury: Unknown Modifying Factors: Improves With Immobilization; Worse With Movement Associated Symptoms: No fever, No weakness, No numbness in legs/feet, No sensory/motor loss, No loss of bladder control, No loss of bowel control (AFSHIN MARISCAL MD) Allergies and Home Medications Allergies Coded Allergies: No Known Drug Allergies (Unverified , 05/15/19) Patient Home Medication List Home Medication List Reviewed: Yes (AFSHIN MARISCAL MD) Review of Systems Constitutional: No fever, No malaise; weight loss EENTM: No blurred vision, No double vision Respiratory: No cough, No short of breath Cardiovascular: No chest pain, No palpitations Musculoskeletal: back pain (SAURABH PERALES STUDENT) Constitutional: see HPI, weight loss Respiratory: No cough, No short of breath Cardiovascular: No chest pain, No syncope Gastrointestinal: abdominal pain; No constipation, No diarrhea Genitourinary: no symptoms reported : No Musculoskeletal: see HPI Skin: no symptoms reported Psychiatric/Neurological: No Symptoms Reported (AFSHIN MARISCAL MD) All Other Systems Reviewed Negative Unless Noted: Yes (AFSHIN MARISCAL MD) Past Lgjbxab-Qjrmnu-Qbcyzc Hx Past Med/Social Hx: Reviewed Nursing Past Med/Soc Hx (AFSHIN MARISCAL MD) Patient Social History Alcohol Use: Occasionally Uses Recreational Drug Use: No Smoking Status: Current Everyday Smoker Recent Foreign Travel: No Contact w/Someone Who Travel: No Recent Infectious Disease Expo: No Recent Hopitalizations: No Physical Abuse: No Sexual Abuse: No Mistreated: No Fear: No (SAURABH PERALES STUDENT) Immunizations Up To Date Date of Influenza Vaccine: Jun 07, 2013 (SAURABH PERALES) Past Medical History Surgeries: Yes ("LESIONS REMOVED FROM OVARIES AND BREAST") Abdominal Respiratory: No Cardiac: No Neurological: No : No Last Menstrual Period: May 13, 2019 Genitourinary: Yes Kidney Infection Gastrointestinal: Yes Gastroesophageal Reflux Musculoskeletal: Yes Back Injury Endocrine: No HEENT: No Cancer: No Did You Recieve Any Treatments: No Psychosocial: No Integumentary: No Blood Disorders: No (SAURABH PERALES STUDENT) Family Medical History Reviewed Nursing Family Hx (AFSHIN MARISCAL MD) Physical Exam Vital Signs Vital Signs - First Documented 05/15/19 00:45 Temp 96.3 Pulse 100 Resp 20 B/P (MAP) 161/109 (126) Pulse Ox 97 (AFSHIN MARISCAL MD) Vital Signs Capillary Refill : Less Than 3 Seconds (SAURABH PERALES STUDENT) Height, Weight, BMI Height: 5'6.00" Weight: 94lbs. oz. [id number]; 17.75 BMI Method:Actual General Appearance: WD/WN, Mild Distress Cardiovascular: No Edema, No Murmur, Tachycardia Respiratory: Chest Non Tender, Lungs Clear, Normal Breath Sounds Neurologic/Psychiatric: Alert, Oriented x3, Normal Mood/Affect Skin: Normal Color, Warm/Dry (ETCHESON,SAURABH K MED STUDENT) General Appearance: WD/WN, Mild Distress HEENT: PERRL/EOMI, Pharynx Normal Neck: Non Tender, Supple Cardiovascular: No Edema, No Murmur, Tachycardia Respiratory: Chest Non Tender, Lungs Clear, Normal Breath Sounds Gastrointestinal: Soft; No Distended, No Guarding; Tenderness (mild tenderness epigastric region) Back: Normal Inspection, No CVA Tenderness, No Vertebral Tenderness, Other (unable to find tender point throughout mid back where patient relates pain to be (low thoracic and upper lumbar spine area.)) Extremity: Normal Range of Motion, Non Tender Neurologic/Psychiatric: Alert, Oriented x3, No Motor/Sensory Deficits, Normal Mood/Affect Skin: Normal Color, Warm/Dry (AFSHIN MARISCAL MD) Progress/Results/Core Measures Results/Orders Lab Results Laboratory Tests Test 05/15/19 00:45 05/15/19 01:25 Range/Units Urine Color YELLOW Urine Clarity CLEAR Urine pH 5 5-9 Urine Specific [place] 1.010 L 1.016-1.022 Urine Protein NEGATIVE NEGATIVE Urine Glucose (UA) NEGATIVE NEGATIVE Urine Ketones NEGATIVE NEGATIVE Urine Nitrite NEGATIVE NEGATIVE Urine Bilirubin NEGATIVE NEGATIVE Urine Urobilinogen NORMAL NORMAL MG/DL Urine Leukocyte Esterase NEGATIVE NEGATIVE Urine RBC (Auto) 5+ H NEGATIVE Urine RBC >100 H /HPF Urine WBC NONE /HPF Urine Squamous Epithelial Cells 5-10 /HPF Urine Crystals NONE /LPF Urine Bacteria NEGATIVE /HPF Urine Casts NONE /LPF Urine Mucus NEGATIVE /LPF Urine Culture Indicated NO Urine Test NEGATIVE NEGATIVE White Blood Count 5.9 4.3-11.0 10^3/uL Red Blood Count 4.74 4.35-5.85 10^6/uL Hemoglobin 12.8 11.5-16.0 G/DL Hematocrit 39 35-52 % Mean Corpuscular Volume 83 80-99 FL Mean Corpuscular Hemoglobin 27 25-34 PG Mean Corpuscular Hemoglobin Concent 33 32-36 G/DL Red Cell Distribution Width 15.7 H 10.0-14.5 % Platelet Count 259 130-400 10^3/uL Mean Platelet Volume 9.9 7.4-10.4 FL Neutrophils (%) (Auto) 63 42-75 % Lymphocytes (%) (Auto) 20 12-44 % Monocytes (%) (Auto) 16 H 0-12 % Eosinophils (%) (Auto) 1 0-10 % Basophils (%) (Auto) 1 0-10 % Neutrophils # (Auto) 3.8 1.8-7.8 X 10^3 Lymphocytes # (Auto) 1.2 1.0-4.0 X 10^3 Monocytes # (Auto) 0.9 0.0-1.0 X 10^3 Eosinophils # (Auto) 0.1 0.0-0.3 10^3/uL Basophils # (Auto) 0.0 0.0-0.1 10^3/uL Sodium Level 136 135-145 MMOL/L Potassium Level 3.4 L 3.6-5.0 MMOL/L Chloride Level 101 98-107 MMOL/L Carbon Dioxide Level 24 21-32 MMOL/L Anion Gap 11 5-14 MMOL/L Blood Urea Nitrogen 6 L 7-18 MG/DL Creatinine 0.73 0.60-1.30 MG/DL Estimat Glomerular Filtration Rate > 60 BUN/Creatinine Ratio 8 Glucose Level 85 70-105 MG/DL Calcium Level 8.8 8.5-10.1 MG/DL Corrected Calcium 9.0 8.5-10.1 MG/DL Total Bilirubin 0.2 0.1-1.0 MG/DL Aspartate Amino Transf (AST/SGOT) 29 5-34 U/L Alanine Aminotransferase (ALT/SGPT) 20 0-55 U/L Alkaline Phosphatase 122 40-136 U/L C-Reactive Protein High Sensitivity 5.77 H 0.00-0.50 MG/DL Total Protein 6.9 6.4-8.2 GM/DL Albumin 3.8 3.2-4.5 GM/DL Lipase 37 8-78 U/L (AFSHIN MARISCAL MD) My Orders Orders - AFSHIN MARISCAL MD Ua Culture If Indicated (05/15/19 01:08) Urine Bedside (05/15/19 01:08) Hcg,Qualitative Urine (05/15/19 01:14) Cbc With Automated Diff (05/15/19:22) Comprehensive Metabolic Panel (05/15/19:22) Hs C Reactive Protein (05/15/19:22) Lipase (05/15/19:22) Ed Iv/Invasive Line Start (05/15/19:22) Ns Iv 1000 Ml (Sodium Chloride 0.9%) (05/15/19 01:22) Fentanyl Injection (Sublimaze Injection (05/15/19 01:22) Ketorolac Injection (Toradol Injection) (05/15/19 01:22) Ct Abdomen/Pelvis W (05/15/19 01:55) (AFSHIN MARISCAL MD) Medications Given in ED Current Medications Medications Dose Ordered Sig/Fritz Route Start Time Stop Time Status Last Admin Dose Admin Sodium Chloride 1,000 ml @ 0 mls/hr Q0M ONCE IV 05/15/19 01:22 05/15/19 01:25 DC 05/15/19 01:36 1,000 MLS/HR (AFSHIN MARISCAL MD) Vital Signs/I&O 05/15/19 00:45 Temp 96.3 Pulse 100 Resp 20 B/P (MAP) 161/109 (126) Pulse Ox 97 (AFSHIN MARISCAL MD) Blood Pressure Mean: 126 Progress Progress Note : Time: 01:35 Progress Note The patient is resting in apparent discomfort in the exam room. Fentanyl and ketorolac are administered for pain control. CBC, CMP, Lipase, CRP and UA for further evaluation. (SAURABH PERALES MED STUDENT) Progress Note : Progress Note I have seen and evaluated the patient and agree with above except as indicated. I have directed the plan of care. Patient presented for back pain but seems to have no focal area of pain on her back. She does have some mild epigastric pain on evaluation. Given these findings and recent weight loss, we will pursue d eeper evaluation with labs and UA. Normal saline 500 mL bolus. Fentanyl 50 g IV and Toradol 15 mg IV ordered. Monitor patient. 0209: Pain is a little better but still remains. Given initial exam findings and pain, we will get CT abdomen and pelvis. This will also give look at thoracic and lumbar spine. Monitor patient. 0318: CT results show no acute findings. Patient is feeling a little better now. We will go ahead and give dose of Decadron for back pain. Discharge home with return precautions. Patient verbalize understanding instructions and agreement with plan. (AFSHIN MARISCAL MD) Departure Impression Primary Impression: Mid back pain Additional Impression: Abdominal pain, acute, epigastric Disposition: 01 HOME, SELF-CARE Condition: Stable Departure-Patient Inst. Decision time for Depature: 03:19 (AFSHIN MARISCAL MD) Referrals: [facility] (PCP) Primary Care Physician DEANA FRIAS MD (Family) Primary Care Physician Patient Instructions: Upper Back Pain (DC), Low Back Pain (DC), Acute Abdomen (Belly Pain), Adult (DC) Add. Discharge Instructions: All discharge instructions reviewed with patient and/or family. Voiced understanding. Take medications as directed. Follow-up with your Dr. in a few days for recheck. You may take Tylenol/acetaminophen 1000 mg every 8 hours as needed for pain. You may take ibuprofen 400-600 mg every 8 hours as needed for pain. Drink plenty of fluids. You may use [id number] Icy Hot with lidocaine patches, Aspercreme with lidocaine patches, Salonpas with lidocaine patches for similar items to area of concern per package directions. Return for worse pain, fever, vomiting, weakness, problems walking or going to the bathroom or other concerns as needed. Scripts Cyclobenzaprine HCl (Cyclobenzaprine HCl) 10 Mg Tablet 10 MG PO Q8H PRN for SPASMS, #15 TAB 0 Refills Prov: AFSHIN MARISCAL MD 05/15/19 SAURABH PERALES MED STUDENT May 15, 2019 01:36 AFSHIN MARISCAL MD May 15, 2019 01:53
[2019-05-15 01:51] LABS: ALANINE AMINOTRANSFERASE 20 U/L (0-55); ALBUMIN 3.8 GM/DL (3.2-4.5); ALKALINE PHOSPHATASE 122 U/L (40-136); BILIRUBIN,TOTAL 0.2 MG/DL (0.1-1.0); BUN/CREATININE RATIO 8; CALCIUM 8.8 MG/DL (8.5-10.1); CARBON DIOXIDE 24 MMOL/L (21-32); CHLORIDE 101 MMOL/L (98-107); CREATININE SERUM 0.73 MG/DL (0.60-1.30); GFR ESTIMATED > 60; GLUCOSE 85 MG/DL (70-105); LIPASE 37 U/L (8-78); POTASSIUM 3.4 MMOL/L (3.6-5.0); SODIUM 136 MMOL/L (135-145); TOTAL PROTEIN 6.9 GM/DL (6.4-8.2)
[2019-05-15] MEDS ORDERED: CYCL10TA9 PO (03:21)
[2019-05-15] MEDS ORDERED: DEXAMETHASONE 10 MG/ML (DECADRON) 1 ML VIAL IV ONE (03:30)
[2019-05-15 03:40] VITALS: BP 138/98
--- NOTE | 2019-05-15 06:34 | Diagnostic Imaging Report ---
PROCEDURE: CT abdomen and pelvis with contrast. TECHNIQUE: Multiple contiguous axial images were obtained through the abdomen and pelvis after administration of intravenous contrast. Auto Exposure Controls were utilized during the CT exam to meet ALARA standards for radiation dose reduction. INDICATION: Back pain. COMPARISON: 01/03/2018 FINDINGS: The heart is unremarkable. The included lung bases are clear. The liver, spleen, pancreas, adrenal glands, and kidneys have a normal appearance. The gallbladder is decompressed. The common bile duct is prominent measuring 8 mm in diameter. There is no pathologically enlarged mesenteric or retroperitoneal adenopathy. The bowel loops are nondilated. There is no free fluid or free air. The osseous structures are age-appropriate. Ureters are grossly normal. The bladder is moderately dilated. There is no free air, loculated collection, or adenopathy in the pelvis. IMPRESSION: 1. Prominent common bile duct measuring 8 mm, more pronounced compared to the prior exam. The gallbladder is decompressed without evidence of acute cholecystitis. This may be further evaluated with liver gallbladder ultrasound or MRCP on outpatient basis. This was added to the overnight report. 2. No evidence of bowel obstruction, free fluid, or acute inflammation in the abdomen and pelvis. Findings were discussed with SANTINO Bates at 6:18 AM on 05/15/[address] Owusu. Dictated by: Dictated on workstation # [id number]
== END 2019-05-15 03:43 | disposition home or self-care (01) ==
LOC: EDUNIT# 00:38 → ER 00:40
DX: M54.6 Pain in thoracic spine (principal); R10.13 Epigastric pain; K21.9 Gastro-esophageal reflux disease without esophagitis; F17.200 Nicotine dependence, unspecified, uncomplicated
CPT/HCPCS: 36415; 74177; 80053; 81000; 83690; 84703; 85025; 86141; 96374; 96375

== ENCOUNTER 2019-05-19 10:30 | Emergency (ER) | payer BC ==
[~2019-05-19] VITALS: Ht 167 cm; Wt 43.0 kg
[2019-05-19] MEDS ORDERED: LIDOCAINE 2% VISCOUS 15 ML UDC PO ONE (12:00)
[2019-05-19] MEDS ORDERED: ANTACID SUSP 30 ML UDC (MYLANTA) PO ONE (12:00)
[2019-05-19 12:07] LABS: BILIRUBIN,URINE NEGATIVE (NEGATIVE); CLARITY,URINE CLEAR; COLOR,URINE YELLOW; GLUCOSE, URINE (UA) NEGATIVE (NEGATIVE); KETONES,URINE NEGATIVE (NEGATIVE); LEUKOCYTE ESTERASE ,URINE NEGATIVE (NEGATIVE); NITRITE,URINE NEGATIVE (NEGATIVE); PH,URINE 5 (5-9); PROTEIN,URINE NEGATIVE (NEGATIVE); UROBILINOGEN,URINE NORMAL (NORMAL)
[2019-05-19 12:12] LABS: BACTERIA,URINE NEGATIVE /HPF
[2019-05-19 12:25] LABS: BASOPHILS # (AUTO) 0.1 10^3/uL (0.0-0.1); BASOPHILS % (AUTO) 1 % (0-10); EOSINOPHILS # (AUTO) 0.1 10^3/uL (0.0-0.3); EOSINOPHILS % (AUTO) 2 % (0-10); HEMATOCRIT 39 % (35-52); HEMOGLOBIN 12.6 G/DL (11.5-16.0); LYMPHOCYTES # (AUTO) 2.4 X 10^3 (1.0-4.0); LYMPHOCYTES % (AUTO) 36 % (12-44); MEAN CORPUSCULAR HEMOGLOBIN 27 PG (25-34); MEAN CORPUSCULAR HGB CONC 33 G/DL (32-36); MEAN CORPUSCULAR VOLUME 83 FL (80-99); MEAN PLATELET VOLUME 9.5 FL (7.4-10.4); MONOCYTES # (AUTO) 0.7 X 10^3 (0.0-1.0); MONOCYTES % (AUTO) 11 % (0-12); NEUTROPHILS # (AUTO) 3.4 X 10^3 (1.8-7.8); NEUTROPHILS % (AUTO) 51 % (42-75); PLATELET COUNT 338 10^3/uL (130-400); RED CELL DISTRIBUTION WIDTH 15.7 % (10.0-14.5); WHITE BLOOD COUNT 6.6 10^3/uL (4.3-11.0)
[2019-05-19] MEDS ORDERED: HOLD METFORMIN - RECEIVED CONTRAST 20 ML VIAL IV SCH (12:45)
[2019-05-19] MEDS ORDERED: IOHEXOL 350 MG/ML 100 ML (OMNIPAQUE 350) VIAL IV ONE (12:45)
[2019-05-19] MEDS ORDERED: NS 100 ML (IVPB) BAG IV ONE (12:45)
[2019-05-19] MEDS ORDERED: CATHETER FLUSH 10 ML SYR IV PRN (12:45)
[2019-05-19 12:46] LABS: ALANINE AMINOTRANSFERASE 21 U/L (0-55); ALBUMIN 3.9 GM/DL (3.2-4.5); ALKALINE PHOSPHATASE 149 U/L (40-136); BILIRUBIN,TOTAL 0.2 MG/DL (0.1-1.0); BUN/CREATININE RATIO 7; CALCIUM 9.2 MG/DL (8.5-10.1); CARBON DIOXIDE 26 MMOL/L (21-32); CHLORIDE 103 MMOL/L (98-107); CREATININE SERUM 0.72 MG/DL (0.60-1.30); GFR ESTIMATED > 60; GLUCOSE 89 MG/DL (70-105); POTASSIUM 3.6 MMOL/L (3.6-5.0); SODIUM 138 MMOL/L (135-145); TOTAL PROTEIN 7.4 GM/DL (6.4-8.2)
[2019-05-19 13:04] LABS: ERYTHROCYTE SEDIMENTATION RATE 14 MM/HR (0-20)
--- NOTE | 2019-05-19 13:09 | ED General ---
General Chief Complaint: General Problems/Pain Stated Complaint: FELT LIKE PASSING OUT Nursing Triage Note: Pt to triage with C/O being lightheaded/dizzy since Sat. Pt states she was here Sat for back/neck pain and it's gotten worse. Pt reports tingling/numbness in upper extremities today along with "sternal burning". Pt denies any chest pain at this time but states she's been diaphoretic x 2 days. Nursing Sepsis Screen: No Definite Risk Source of Information: Patient Exam Limitations: No Limitations History of Present Illness Date Seen by Provider: May 19, 2019 Time Seen by Provider: 13:06 Initial Comments To ER with mid thoracic back pain for about a week. She was seen here a few days ago and had a workup for this, she was found to have blood in the urine and a CT abdomen and pelvis followed. It was unremarkable. Her pain improved with analgesia. She was sent home on Flexeril. The pain persists today, she describes as sharp thoracic back pain midline that does not radiate. She also has some epigastric and lower chest burning sensation. Timing/Duration: 1-2 Days Severity: Moderate Associated Systoms: Denies Symptoms Allergies and Home Medications Allergies Coded Allergies: No Known Drug Allergies (Unverified , 05/15/19) Home Medications Cyclobenzaprine HCl 10 Mg Tablet, 10 MG PO Q8H PRN for SPASMS Prescribed by: AFSHIN MARISCAL on 05/15/19 0321 Patient Home Medication List Home Medication List Reviewed: Yes Review of Systems Review of Systems Constitutional: see HPI EENTM: see HPI Respiratory: no symptoms reported Genitourinary: no symptoms reported Musculoskeletal: see HPI, back pain Skin: no symptoms reported Psychiatric/Neurological: No Symptoms Reported Hematologic/Lymphatic: No Symptoms Reported Past Hhoqhwu-Jmkbsi-Pblzqa Hx Patient Social History Alcohol Use: Regular Use Alcohol Beverage of Choice: [place] Recreational Drug Use: No Smoking Status: Current Everyday Smoker Type Used: Cigarettes 2nd Hand Smoke Exposure: Yes Recent Foreign Travel: No Contact w/Someone Who Travel: No Recent Infectious Disease Expo: No Recent Hopitalizations: No Physical Abuse: No Sexual Abuse: No Mistreated: No Fear: No Immunizations Up To Date Date of Influenza Vaccine: Jun 07, 2013 Seasonal Allergies Seasonal Allergies: No Past Medical History Surgeries: Yes ("LESIONS REMOVED FROM OVARIES AND BREAST") Abdominal, Appendectomy, Lumpectomy Respiratory: No Cardiac: No Neurological: No Genitourinary: Yes Kidney Infection Gastrointestinal: Yes Gastroesophageal Reflux Musculoskeletal: Yes Back Injury Endocrine: No HEENT: No Cancer: No Did You Recieve Any Treatments: No Psychosocial: No Integumentary: No Blood Disorders: No Physical Exam Vital Signs Vital Signs - First Documented 05/19/19 11:21 Temp 36.2 Pulse 103 Resp 19 B/P (MAP) 140/99 (113) Pulse Ox 98 O2 Delivery Room Air Capillary Refill : Less Than 3 Seconds Height, Weight, BMI Height: 5'6.00" Weight: 94lbs. oz. [id number]; 15.00 BMI Method:Actual General Appearance: No Apparent Distress, WD/WN, Thin Eyes: Bilateral Eye Normal Inspection, Bilateral Eye PERRL, Bilateral Eye EOMI HEENT: PERRL/EOMI, TMs Normal Neck: Full Range of Motion, Normal Inspection Respiratory: No Accessory Muscle Use, No Respiratory Distress Gastrointestinal: Non Tender, Soft Extremity: Normal Capillary Refill, Normal Inspection Neurologic/Psychiatric: Alert, Oriented x3 Skin: Normal Color, Warm/Dry Progress/Results/Core Measures Suspected Sepsis Recent Fever Within 48 Hours: No Infection Criteria Present: None New/Unexplained Altered Menta: No Sepsis Screen: No Definite Risk SIRS Temperature: Pulse: 103 Respiratory Rate: 19 Laboratory Tests 05/19/19 12:12: White Blood Count 6.6 Blood Pressure 140 /99 Mean: 113 Laboratory Tests 05/19/19 12:12: Creatinine 0.72, Platelet Count 338, Total Bilirubin 0.2 Results/Orders Lab Results Laboratory Tests Test 05/19/19 11:33 05/19/19 12:12 Range/Units Urine Color YELLOW Urine Clarity CLEAR Urine pH 5 5-9 Urine Specific [place] 1.005 L 1.016-1.022 Urine Protein NEGATIVE NEGATIVE Urine Glucose (UA) NEGATIVE NEGATIVE Urine Ketones NEGATIVE NEGATIVE Urine Nitrite NEGATIVE NEGATIVE Urine Bilirubin NEGATIVE NEGATIVE Urine Urobilinogen NORMAL NORMAL MG/DL Urine Leukocyte Esterase NEGATIVE NEGATIVE Urine RBC (Auto) NEGATIVE NEGATIVE Urine RBC NONE /HPF Urine WBC NONE /HPF Urine Squamous Epithelial Cells 2-5 /HPF Urine Crystals NONE /LPF Urine Bacteria NEGATIVE /HPF Urine Casts NONE /LPF Urine Mucus NEGATIVE /LPF Urine Culture Indicated NO White Blood Count 6.6 4.3-11.0 10^3/uL Red Blood Count 4.69 4.35-5.85 10^6/uL Hemoglobin 12.6 11.5-16.0 G/DL Hematocrit 39 35-52 % Mean Corpuscular Volume 83 80-99 FL Mean Corpuscular Hemoglobin 27 25-34 PG Mean Corpuscular Hemoglobin Concent 33 32-36 G/DL Red Cell Distribution Width 15.7 H 10.0-14.5 % Platelet Count 338 130-400 10^3/uL Mean Platelet Volume 9.5 7.4-10.4 FL Neutrophils (%) (Auto) 51 42-75 % Lymphocytes (%) (Auto) 36 12-44 % Monocytes (%) (Auto) 11 0-12 % Eosinophils (%) (Auto) 2 0-10 % Basophils (%) (Auto) 1 0-10 % Neutrophils # (Auto) 3.4 1.8-7.8 X 10^3 Lymphocytes # (Auto) 2.4 1.0-4.0 X 10^3 Monocytes # (Auto) 0.7 0.0-1.0 X 10^3 Eosinophils # (Auto) 0.1 0.0-0.3 10^3/uL Basophils # (Auto) 0.1 0.0-0.1 10^3/uL Erythrocyte Sedimentation Rate 14 0-20 MM/HR Sodium Level 138 135-145 MMOL/L Potassium Level 3.6 3.6-5.0 MMOL/L Chloride Level 103 98-107 MMOL/L Carbon Dioxide Level 26 21-32 MMOL/L Anion Gap 9 5-14 MMOL/L Blood Urea Nitrogen 5 L 7-18 MG/DL Creatinine 0.72 0.60-1.30 MG/DL Estimat Glomerular Filtration Rate > 60 BUN/Creatinine Ratio 7 Glucose Level 89 70-105 MG/DL Calcium Level 9.2 8.5-10.1 MG/DL Corrected Calcium 9.3 8.5-10.1 MG/DL Total Bilirubin 0.2 0.1-1.0 MG/DL Aspartate Amino Transf (AST/SGOT) 35 H 5-34 U/L Alanine Aminotransferase (ALT/SGPT) 21 0-55 U/L Alkaline Phosphatase 149 H 40-136 U/L Troponin I < 0.028 <0.028 NG/ML Total Protein 7.4 6.4-8.2 GM/DL Albumin 3.9 3.2-4.5 GM/DL My Orders Orders - ALICIA HAGEN CIRCULAR [employer] HELPER Cbc With Automated Diff (05/19/19 11:56) Troponin I (05/19/19 11:56) Ekg Tracing (05/19/19 11:56) Comprehensive Metabolic Panel (05/19/19 11:56) Ua Culture If Indicated (05/19/19 11:56) Erythrocyte Sedimentation Rate (05/19/19 11:56) Ct Angio Chest W (05/19/19 11:56) Antacid Suspension (Mylanta Suspension (05/19/19 12:00) Lidocaine 2% Viscous 15 Ml (Xylocaine Vi (05/19/19 12:00) Iohexol Injection (Omnipaque 350 Mg/Ml 1 (05/19/19 12:45) Di Iv Start (Assessment) .IV start (05/19/19 12:32) Received Contrast (Hold Metformin- Contr (05/19/19 12:45) Sodium Chloride Flush (Catheter Flush Sy (05/19/19 12:45) Ns (Ivpb) (Sodium Chloride 0.9% Ivpb Bag (05/19/19 12:45) Medications Given in ED Current Medications Medications Dose Ordered Sig/Fritz Route Start Time Stop Time Status Last Admin Dose Admin Al Hydrox/Mg Hydrox/Simethicone 30 ml ONCE ONCE PO 05/19/19 12:00 05/19/19 12:01 DC 05/19/19 12:22 30 ML Iohexol 100 ml ONCE ONCE IV 05/19/19 12:45 05/19/19 12:46 DC 05/19/19 13:07 50 ML Lidocaine HCl 15 ml ONCE ONCE PO 05/19/19 12:00 05/19/19 12:01 DC 05/19/19 12:22 15 ML Sodium Chloride 10 ml NEEDED PRN IV 05/19/19 12:45 05/19/19 13:07 10 ML Sodium Chloride 100 ml ONCE ONCE IV 05/19/19 12:45 05/19/19 12:46 DC 05/19/19 13:07 80 ML Vital Signs/I&O 05/19/19 11:21 Temp 36.2 Pulse 103 Resp 19 B/P (MAP) 140/99 (113) Pulse Ox 98 O2 Delivery Room Air Capillary Refill : Less Than 3 Seconds Blood Pressure Mean: 113 Departure Impression Primary Impression: Thoracic back pain Qualified Codes: M54.6 - Pain in thoracic spine Additional Impression: Pleurisy Disposition: 01 HOME, SELF-CARE Condition: Critical Departure-Patient Inst. Decision time for Depature: 13:09 Referrals: [facility] (PCP) Primary Care Physician DEANA FRIAS MD (Family) Primary Care Physician Patient Instructions: Pleuritic Chest Pain Add. Discharge Instructions: 1. Antibiotics as directed 2. Anti-inflammatories as directed 3. Follow-up with your doctor next week for recheck. All discharge instructions reviewed with patient and/or family. Voiced understanding. Scripts Doxycycline Hyclate (Doxycycline Hyclate) 100 Mg Tablet 100 MG PO BID, #14 TAB Prov: ALICIA HAGEN APRN 05/19/19 Naproxen (Naprosyn) 500 Mg Tablet 500 MG PO BID PRN for PAIN-SEVERE, #30 TAB 0 Refills Prov: ALICIA HAGEN APRN 05/19/19 ALICIA HAGEN APRN May 19, 2019 13:09
--- NOTE | 2019-05-19 13:27 | Diagnostic Imaging Report ---
PROCEDURE: CT angiography of the chest with contrast. TECHNIQUE: Multiple contiguous axial images were obtained through the chest after uneventful bolus administration of intravenous contrast. 3D reconstructed CTA MIP acquisitions were also performed. Auto Exposure Controls were utilized during the CT exam to meet ALARA standards for radiation dose reduction. INDICATION: Chest pain. COMPARISON: No prior studies are available for comparison. FINDINGS: Evaluation of the pulmonary arterial system is without evidence of thromboembolism. No filling defects are seen within central, lobar, or segmental branches. The thoracic aorta is normal in caliber. No dissection is identified. No pericardial or pleural fluid is identified. No axillary, hilar, or mediastinal lymphadenopathy is identified. Central airways are patent. No parenchymal mass is seen. There is a tiny subpleural micronodule in the superior segment of the right lower lobe. Upper lobes do show some mild interstitial nodular changes, likely on an infectious/inflammatory basis. This is noted to a lesser degree in the lower lobes. No consolidation is seen. Upper abdomen is unremarkable. IMPRESSION: 1. No evidence of pulmonary embolism or thoracic aortic dissection. 2. Mild upper lobe subtle interstitial nodular changes, likely on an infectious/inflammatory basis. The study is otherwise unremarkable. Dictated by: Dictated on workstation # [id number]
[2019-05-19] MEDS ORDERED: NAPR-1071 PO (13:39)
[2019-05-19] MEDS ORDERED: DOXY100T2 PO (13:39)
[2019-05-19 13:46] VITALS: BP 135/92
== END 2019-05-19 13:46 | disposition home or self-care (01) ==
LOC: EDUNIT# 10:30 → ER 10:31
DX: M54.6 Pain in thoracic spine (principal); R09.1 Pleurisy; K21.9 Gastro-esophageal reflux disease without esophagitis; F17.210 Nicotine dependence, cigarettes, uncomplicated; Z90.49 Acquired absence of other specified parts of digestive tract
CPT/HCPCS: 36415; 71275; 80053; 81000; 84484; 85025; 85652; 93005

== ENCOUNTER 2021-11-13 12:52 | Emergency (ER) | payer SELFPAY ==
[~2021-11-13] VITALS: Ht 162 cm; Wt 45.0 kg
[~2021-11-13 12:52] MED LIST changes: +CYCL10TA25 PO; +DOXY100T2 PO; +NAPR-1071 PO; +OXYB5TAB13; -OXYB5TAB9; -SULF1TAB35 PO; +SULF1TAB38 PO; -TRAZ-190; +TRAZ-227
--- NOTE | 2021-11-13 13:24 | ED General ---
General Chief Complaint: Allergic Reaction Stated Complaint: BURING OF THE FACE / EYES- COUGH- SORE THROAT Nursing Triage Note: PT STATES FOR APPROX 1 MONTH OR SO, FACIAL REDNESS, BURNING AND RASH. RATES 9/10 @ TIMES. PT STATES HAD TO QUIT LAST JOB D/T SENSITIVITY TO CHEMICALS. PT DENIES TAKING ANYTHING FOR ALLERGIES. PT STATES SOME TIMES HAS BURNING OF EYES Source of Information: Patient Exam Limitations: No Limitations (GABBY RHOADES STUDENT) History of Present Illness Date Seen by Provider: Nov 13, 2021 Time Seen by Provider: 13:17 Initial Comments Patient is a 46 year old female who presents with complaints of eye, nose, throat, mouth, and face burning as well as a rash around her chin. Reports these symptoms started one month ago and have come and gone 4 times in the last month. Reports the pain to feel like burning and is a 9/10 at its worse. States she's taken nothing for the pain at home. Reports the pain to be a 3- 4/10 currently. Denies excessive tearing or dry eyes. Denies eye, nose, and ear discharge. States that the rash is dry and scaly and she's been using her usual skin care products with no changes in the last month. No new pets, detergents, or foods introduced in the last month. States that she's never had these symptoms prior to one month ago. Reports eating and drinking a bit less during these flares. No chest pain, fevers, chills, diarrhea, weight loss, or headaches. Timing/Duration: Other (over one month) Severity: Mild Associated Systoms: No Chest Pain, No Cough, No Fever/Chills, No Loss of Appetite, No Nausea/Vomiting (GABBY RHOADES STUDENT) Allergies and Home Medications Allergies Coded Allergies: No Known Drug Allergies (Unverified , 05/15/19) Patient Home Medication List Home Medication List Reviewed: Yes (PASCUAL DAVIDSON MD) Cyclobenzaprine HCl (Cyclobenzaprine HCl) 10 Mg Tablet, 10 MG PO Q8H PRN for SPASMS Prescribed by: AFSHIN MARISCAL on 05/15/19 0321 Doxycycline Hyclate (Doxycycline Hyclate) 100 Mg Tablet, 100 MG PO BID Prescribed by: ALICIA HAGEN on 05/19/19 1339 Naproxen (Naprosyn) 500 Mg Tablet, 500 MG PO BID PRN for PAIN-SEVERE Prescribed by: ALICIA HAGEN on 05/19/19 9511 Review of Systems Review of Systems Constitutional: no symptoms reported; No chills, No diaphoresis, No fever, No weight loss EENTM: eye pain, mouth pain, throat pain; No ear discharge, No hearing loss, No blurred vision, No double vision, No hoarseness Respiratory: no symptoms reported; No cough, No dyspnea on exertion Cardiovascular: no symptoms reported; No chest pain, No edema, No palpitations Gastrointestinal: No abdominal pain, No constipation, No diarrhea Genitourinary: no symptoms reported; No dysuria, No frequency Musculoskeletal: no symptoms reported; No back pain, No joint pain Skin: No change in hair/nails; rash (around mouth per patient) Psychiatric/Neurological: No Symptoms Reported; Denies Anxiety, Denies Depressed Hematologic/Lymphatic: No Symptoms Reported; Denies Easy Bleeding, Denies Easy Bruising Immunological/Allergic: see HPI (GABBY RHOADES STUDENT) All Other Systems Reviewed Negative Unless Noted: Yes (GABBY RHOADES) Past Gqedmgl-Vcwxmi-Laafho Hx Patient Social History Tobacco Use?: Yes Tobacco type used: Cigarettes (1ppd x 30 years) Smoking Status: Current Everyday Smoker Use of E-Cig and/or Vaping dev: No Substance use?: No Alcohol Use?: Yes Alcohol type: Hard Liquor (2-4 shots several days per week) Alcohol Frequency: Daily Pt feels they are or have been: No (GABBY RHOADES) Immunizations Up To Date Tetanus Booster (TDap): Unknown (GABBY RHOADES) Seasonal Allergies Seasonal Allergies: No (GABBY RHOADES) Past Medical History Surgeries: Yes ("LESIONS REMOVED FROM OVARIES AND BREAST") Abdominal, Appendectomy, Lumpectomy Respiratory: No Cardiac: No Neurological: No Genitourinary: Yes Kidney Infection Gastrointestinal: Yes Gastroesophageal Reflux Musculoskeletal: Yes Back Injury Endocrine: No HEENT: No Loss of Vision: Denies Hearing Impairment: Denies Cancer: No Did You Recieve Any Treatments: No Psychosocial: No Integumentary: No Blood Disorders: No (GABBY RHOADES) Physical Exam Vital Signs Vital Signs - First Documented 11/13/21 13:00 Temp 36.5 Pulse 78 Resp 18 B/P (MAP) 169/109 (129) Pulse Ox 100 (PASCUAL DAVIDSON MD) Vital Signs Capillary Refill : Less Than 3 Seconds (GABBY RHOADES MED STUDENT) Height, Weight, BMI Height: 5'6.00" Weight: 94lbs. oz. 42.082887wj; 17.00 BMI Method:Actual General Appearance: No Apparent Distress, Thin Eyes: Bilateral Eye Normal Inspection, Bilateral Eye PERRL, Bilateral Eye EOMI HEENT: PERRL/EOMI, Pharynx Normal Neck: Full Range of Motion, Non Tender Respiratory: Chest Non Tender, Lungs Clear, Decreased Breath Sounds Cardiovascular: Regular Rate, Rhythm, No Edema, Normal Peripheral Pulses Gastrointestinal: Normal Bowel Sounds, Non Tender, Soft Rectal: Deferred Back: Normal Inspection, No Vertebral Tenderness Extremity: Normal Capillary Refill, Non Tender, No Calf Tenderness, No Pedal E nicole Neurologic/Psychiatric: Alert, Oriented x3, No Motor/Sensory Deficits, Normal Mood/Affect Skin: Normal Color, Warm/Dry Lymphatic: No Adenopathy (Head and neck) (GABBY RHOADES MED STUDENT) Progress/Results/Core Measures Suspected Sepsis SIRS Temperature: Pulse: 78 Respiratory Rate: 18 Blood Pressure 169 /109 Mean: 129 (GABBY RHOADES MED STUDENT) Results/Orders Vital Signs/I&O 11/13/21 11/13/21 13:00 13:51 Temp 36.5 36.5 Pulse 78 78 Resp 18 18 B/P (MAP) 169/109 (129) 169/109 Pulse Ox 100 100 (PASCUAL DAVIDSON MD) Vital Signs/I&O Capillary Refill : Less Than 3 Seconds (GABBY RHOADES MED STUDENT) Blood Pressure Mean: 129 Progress Note : Time: 13:37 Progress Note patient with "burning" to facfe intermittently for the last month to 6 weeks. Unbearable at its worst - will flare periodically. No changes to soaps, detergen t, lotions. No associated SOB, mouth swelling, vision change. Went to the clinic and was told to use some prescription eye drops but could not afford them. Is not using any OTC ointments or creams to the red area of the chin. COmplains of pain in the mouth as well/ dry mouth. Exam pertinent for erythematous, dry scaly rash to chin. No LAD to head/neck. No lesions in the mouth. No conjunctivitis/tearing. Nasal openings clear without exudate or erythema. Lungs clear. No other skin complaints, ASsessment: nonspecific dermatitis of chin and paresthesia. Will recommend otc antifungal cream to chin. Also a soothing lotion such as Ceravie to face or other moisturizer. She suspects something in the house after her worked on their foundation - advised to try and avoid trigger. No indications for steroids at this time. Follow up with [facility]. (PASCUAL DAVIDSON MD) Departure Impression Primary Impression: Facial paresthesia Additional Impression: Dermatitis Disposition: 01 HOME, SELF-CARE Condition: Stable Departure-Patient Inst. Decision time for Depature: 13:42 (PASCUAL DAVIDSON MD) Referrals: [facility],LOCAL PHYSICIAN (PCP) Primary Care Physician Patient Instructions: Dermatitis, Paresthesia (DC) Add. Discharge Instructions: I would recommend a non perfumed, no dye facial moisturizer for your face. Cetaphil or Aveeno. An over the counter anti-fungal cream for the chin area - such as Lotrimin. Follow directions on packaging. Oral Biotene and saline eye drops. If you have eye itching or burning there are several over the counter "allergy" eye drops that may alleviate these symptoms such as Zatidor or Pataday. Return to the ER for any new, concerning or emergent complaints. Follow up with [facility]. Verification and Attestation of Medical Student E/M Service A medical student performed and documented this service in my presence. I reviewed and verified all information documented by the medical student and made modifications to such information, when appropriate. I personally performed the physical exam and medical decision making. Pascual Davidson, Nov 14, 2021,06:29 (PASCUAL DAVIDSON MD) GABBY RHOADES MED STUDENT Nov 13, 2021 13:24 PASCUAL DAVIDSON MD Nov 13, 2021 13:46
[2021-11-13 13:51] VITALS: BP 169/109
== END 2021-11-13 13:51 | disposition home or self-care (01) ==
LOC: EDUNIT# 12:52 → ER 12:54
DX: R20.2 Paresthesia of skin (principal); L30.9 Dermatitis, unspecified; F17.210 Nicotine dependence, cigarettes, uncomplicated
CPT/HCPCS: 99281

== ENCOUNTER 2022-02-24 09:30 | Inpatient (IN) | payer SELFPAY ==
[~2022-02-24] VITALS: Ht 165 cm; Wt 40.1 kg
[2022-02-24 10:15] LABS: BASOPHILS # (AUTO) 0.1 10^3/uL (0.0-0.1); BASOPHILS % (AUTO) 1 % (0-10); EOSINOPHILS % (AUTO) 0 % (0-10); HEMATOCRIT 37 % (35-52); HEMOGLOBIN 11.6 g/dL (11.5-16.0); LYMPHOCYTES # (AUTO) 1.2 10^3/uL (1.0-4.0); LYMPHOCYTES % (AUTO) 19 % (12-44); MEAN CORPUSCULAR HEMOGLOBIN 24 pg (25-34); MEAN CORPUSCULAR HGB CONC 32 g/dL (32-36); MEAN CORPUSCULAR VOLUME 77 fL (80-99); MEAN PLATELET VOLUME 9.9 fL (9.0-12.2); MONOCYTES # (AUTO) 0.7 10^3/uL (0.0-1.0); MONOCYTES % (AUTO) 11 % (0-12); NEUTROPHILS # (AUTO) 4.3 10^3/uL (1.8-7.8); NEUTROPHILS % (AUTO) 69 % (42-75); PLATELET COUNT 452 10^3/uL (130-400); WHITE BLOOD COUNT 6.3 10^3/uL (4.3-11.0)
[2022-02-24 10:19] LABS: ALBUMIN 4.7 GM/DL (3.2-4.5); CHLORIDE 91 MMOL/L (98-107); POTASSIUM 3.5 MMOL/L (3.6-5.0); SODIUM 134 MMOL/L (135-145)
[2022-02-24 10:21] LABS: CALCIUM 9.7 MG/DL (8.5-10.1)
[2022-02-24 10:22] LABS: GLUCOSE 89 MG/DL (70-105)
[2022-02-24 10:23] LABS: CARBON DIOXIDE 19 MMOL/L (21-32)
[2022-02-24 10:24] LABS: BILIRUBIN,TOTAL 0.9 MG/DL (0.1-1.0)
[2022-02-24 10:26] LABS: ALKALINE PHOSPHATASE 97 U/L (40-136); CREATININE SERUM 0.72 MG/DL (0.60-1.30); GFR ESTIMATED 104
--- NOTE | 2022-02-24 10:26 | ED Psychosocial ---
General Chief Complaint: Detox Stated Complaint: NAUSEA - DIZZY Nursing Triage Note: Pt states that she drinks about a 1/2 pint of bourbon a day, has not eaten in a week and feels like she has alcohol poisoning. She has been dry heaving. Also would like to seek alcohol treatment oil heaterman as she feels like she is going to . Source: patient Exam Limitations: no limitations History of Present Illness Date Seen by Provider: Feb 24, 2022 Time Seen by Provider: 10:10 Initial Comments Patient is a 46-year-old female who presents to the emergency department today with a chief complaint of feeling weak, short of breath, nauseous. She admits to being a daily alcohol user half pint to a pint daily. She states she has been doing this for many years, possibly 3-5. Last time she saw Was 2 years ago. She supposed to be on medications for hypertension but cannot recall the last time she took them, possibly a week ago. She states she has not eaten food in about a week. She lives at home with her boyfriend. She states he Shames her about her drinking. She has had passive suicidal ideation but does state specifically that she is thought about "drinking myself to ". No weapons in the home. She does not have homicidal ideation. No auditory or visual hallucinations. She states at times she can go weeks without drinking but then "something triggers me" and she starts drinking again. She has never had a seizure related to alcohol withdrawal. She does get the shakes when she does not drink. Her last drink was sometime last evening. She has had a slight cough. No history of cardiac evaluation. She still has menstrual cycles she denies abdominal pain, black or bloody stools or problem with urination. All other review of systems reviewed and negative except as stated. Timing/Duration: getting worse Severity: moderate Associated Symptoms: ingestion Allergies and Home Medications Allergies Coded Allergies: No Known Drug Allergies (Unverified , 05/15/19) Patient Home Medication List Home Medication List Reviewed: Yes Cyclobenzaprine HCl (Cyclobenzaprine HCl) 10 Mg Tablet, 10 MG PO Q8H PRN for SPASMS Prescribed by: AFSHIN MARISCAL on 05/15/19 0321 Doxycycline Hyclate (Doxycycline Hyclate) 100 Mg Tablet, 100 MG PO BID Prescribed by: ALICIA HAGEN on 05/19/191338 Naproxen (Naprosyn) 500 Mg Tablet, 500 MG PO BID PRN for PAIN-SEVERE Prescribed by: ALICIA HAGEN on 05/19/191338 Review of Systems Constitutional: see HPI EENTM: no symptoms reported Respiratory: cough, short of breath Cardiovascular: no symptoms reported Gastrointestinal: nausea Genitourinary: no symptoms reported : No Musculoskeletal: no symptoms reported Skin: no symptoms reported Psychiatric/Neurological: Anxiety, Depressed, Emotional Problems, Headache, Other (dizziness) All Other Systems Reviewed Negative Unless Noted: Yes Past Kzfwapo-Igiwub-Fqpgnj Hx Patient Social History Tobacco Use?: Yes Tobacco type used: Cigarettes Smoking Status: Current Everyday Smoker Use of E-Cig and/or Vaping dev: No Substance use?: No Alcohol Use?: Yes Alcohol type: Hard Liquor Alcohol Frequency: Daily Pt feels they are or have been: No Immunizations Up To Date Tetanus Booster (TDap): Unknown Seasonal Allergies Seasonal Allergies: No Past Medical History Surgeries: Yes ("LESIONS REMOVED FROM OVARIES AND BREAST") Abdominal, Appendectomy, Lumpectomy Respiratory: No Cardiac: No Neurological: No Genitourinary: Yes Kidney Infection Gastrointestinal: Yes Gastroesophageal Reflux Musculoskeletal: Yes Back Injury Endocrine: No HEENT: No Loss of Vision: Denies Hearing Impairment: Denies Cancer: No Did You Recieve Any Treatments: No Psychosocial: No Integumentary: No Blood Disorders: No Physical Exam Vital Signs - First Documented 02/24/22 09:39 Temp 35.9 Pulse 132 Resp 16 B/P (MAP) 150/122 (131) Pulse Ox 100 O2 Delivery Room Air Capillary Refill : Less Than 3 Seconds Height, Weight, BMI Height: 5'6.00" Weight: 94lbs. oz. 42.692842hj; 14.00 BMI Method:Actual General Appearance: no apparent distress, thin HEENT: PERRL/EOMI, other (dry oral mucosa) Neck: supple, normal inspection Respiratory: lungs clear, normal breath sounds, no respiratory distress, no accessory muscle use Cardiovascular: regular rate, rhythm, tachycardia (120) Gastrointestinal: normal bowel sounds, non tender, soft, no organomegaly Extremities: normal range of motion, non-tender, normal inspection, no pedal edema Neurologic/Psychiatric: no motor/sensory deficits, alert, normal mood/affect, oriented x 3, other (clinically sober) Appearance/Memory: appropriate appearance, appropriate insight, neat, no memory impairment Behavior/Eye Contact: cooperative, good eye contact, normal speech Thoughts/Hallucinations: normal thought pattern, no apparent hallucination Skin: normal color, warm/dry Progress/Results/Core Measures Results/Orders Lab Results Laboratory Tests Test 02/24/22 09:53 02/24/22 10:12 02/24/22 10:20 02/24/22 12:52 Range/Units White Blood Count 6.3 4.3-11.0 10^3/uL Red Blood Count 4.76 3.80-5.11 10^6/uL Hemoglobin 11.6 11.5-16.0 g/dL Hematocrit 37 35-52 % Mean Corpuscular Volume 77 L 80-99 fL Mean Corpuscular Hemoglobin 24 L 25-34 pg Mean Corpuscular Hemoglobin Concent 32 32-36 g/dL Red Cell Distribution Width 25.0 H 10.0-14.5 % Platelet Count 452 H 130-400 10^3/uL Mean Platelet Volume 9.9 9.0-12.2 fL Immature Granulocyte % (Auto) 1 % Neutrophils (%) (Auto) 69 42-75 % Lymphocytes (%) (Auto) 19 12-44 % Monocytes (%) (Auto) 11 0-12 % Eosinophils (%) (Auto) 0 0-10 % Basophils (%) (Auto) 1 0-10 % Neutrophils # (Auto) 4.3 1.8-7.8 10^3/uL Lymphocytes # (Auto) 1.2 1.0-4.0 10^3/uL Monocytes # (Auto) 0.7 0.0-1.0 10^3/uL Eosinophils # (Auto) 0.0 0.0-0.3 10^3/uL Basophils # (Auto) 0.1 0.0-0.1 10^3/uL Immature Granulocyte # (Auto) 0.0 0.0-0.1 10^3/uL Sodium Level 134 L 135-145 MMOL/L Potassium Level 3.5 L 3.6-5.0 MMOL/L Chloride Level 91 L 98-107 MMOL/L Carbon Dioxide Level 19 L 21-32 MMOL/L Anion Gap 24 H 5-14 MMOL/L Blood Urea Nitrogen 14 7-18 MG/DL Creatinine 0.72 0.60-1.30 MG/DL Estimat Glomerular Filtration Rate 104 BUN/Creatinine Ratio 19 Glucose Level 89 70-105 MG/DL Calcium Level 9.7 8.5-10.1 MG/DL Corrected Calcium 8.5-10.1 MG/DL Magnesium Level 1.9 1.6-2.4 MG/DL Total Bilirubin 0.9 0.1-1.0 MG/DL Aspartate Amino Transf (AST/SGOT) 50 H 5-34 U/L Alanine Aminotransferase (ALT/SGPT) 34 0-55 U/L Alkaline Phosphatase 97 40-136 U/L Total Creatine Kinase 43 29-168 U/L Troponin I < 0.028 <0.028 NG/ML Total Protein 8.0 6.4-8.2 GM/DL Albumin 4.7 H 3.2-4.5 GM/DL Serum Test, Qualitative NEGATIVE NEGATIVE Salicylates Level < 5.0 L 5.0-20.0 MG/DL Acetaminophen Level < 10 L 10-30 UG/ML Serum Alcohol 136 H 58 H <10 MG/DL SARS-CoV-2 RNA (RT-PCR) Not Detected Not Detecte Urine Color YELLOW Urine Clarity CLEAR Urine pH 6.0 5-9 Urine Specific [place] 1.020 1.016-1.022 Urine Protein 1+ H NEGATIVE Urine Glucose (UA) NEGATIVE NEGATIVE Urine Ketones 1+ H NEGATIVE Urine Nitrite NEGATIVE NEGATIVE Urine Bilirubin NEGATIVE NEGATIVE Urine Urobilinogen 0.2 < = 1.0 MG/DL Urine Leukocyte Esterase NEGATIVE NEGATIVE Urine RBC (Auto) NEGATIVE NEGATIVE Urine RBC NONE /HPF Urine WBC NONE /HPF Urine Squamous Epithelial Cells 2-5 /HPF Urine Crystals NONE /LPF Urine Bacteria LARGE H /HPF Urine Casts PRESENT /LPF Urine Hyaline Casts 2-5 H /LPF Urine Mucus NEGATIVE /LPF Urine Culture Indicated YES Urine Opiates Screen NEGATIVE NEGATIVE Urine Oxycodone Screen NEGATIVE NEGATIVE Urine Methadone Screen NEGATIVE NEGATIVE Urine Propoxyphene Screen NEGATIVE NEGATIVE Urine Barbiturates Screen NEGATIVE NEGATIVE Ur Tricyclic Antidepressants Screen NEGATIVE NEGATIVE Urine Phencyclidine Screen NEGATIVE NEGATIVE Urine Amphetamines Screen NEGATIVE NEGATIVE Urine Methamphetamines Screen NEGATIVE NEGATIVE Urine Benzodiazepines Screen NEGATIVE NEGATIVE Urine Cocaine Screen NEGATIVE NEGATIVE Urine Cannabinoids Screen NEGATIVE NEGATIVE My Orders Orders - PASCUAL DAVIDSON MD Ua Culture If Indicated (02/24/22 10:09) Cbc With Automated Diff (02/24/22 10:09) Comprehensive Metabolic Panel (02/24/22 10:09) Alcohol (02/24/22 10:09) Drug Screen Stat (Urine) (02/24/22 10:09) Acetaminophen (02/24/22 10:09) Salicylate (02/24/22 10:09) Ekg Tracing (02/24/22 10:09) Ed Iv/Invasive Line Start (02/24/22 10:09) Monitor-Rhythm Ecg Trace Only (02/24/22 10:09) Bh Status Checks/Observation Q15M (02/24/22 10:09) Ed Iv/Invasive Line Start (02/24/22 10:09) Covid 19 Inhouse Test (02/24/22 10:09) Isolation Central Supply Req (02/24/22 10:09) Troponin I [place] (02/24/22 10:23) Creatine Kinase (02/24/22 10:23) Ns Iv 1000 Ml (Sodium Chloride 0.9%) (02/24/22 10:30) Thiamine Tablet (Vitamin B-1 Tablet) (02/24/22 10:30) Folic Acid Tablet (Folic Acid Tablet) (02/25/22 09:00) Hcg,Qualitative Serum (02/24/22 10:26) Urine Culture (02/24/22 10:20) Alcohol (02/24/22 12:41) Ns Iv 1000 Ml (Sodium Chloride 0.9%) (02/24/22 12:45) Magnesium (02/24/22 13:20) Ekg Tracing (02/24/22 13:20) Lorazepam Injection (Ativan Injection) (02/24/22 13:20) Diet As Tolerated (Order) (02/24/22 14:50) Medications Given in ED Current Medications Medications Dose Ordered Sig/Fritz Route Start Time Stop Time Status Last Admin Dose Admin Thiamine HCl 100 mg ONCE ONCE PO 02/24/22 10:30 02/24/22 10:31 DC 02/24/22 12:12 100 MG Vital Signs/I&O 02/24/22 02/24/22 02/24/22 09:39 17:19 17:19 Temp 35.9 35.9 37.4 Pulse 132 132 104 Resp 16 18 B/P (MAP) 150/122 (131) 178/81 (113) Pulse Ox 100 100 100 O2 Delivery Room Air Room Air FiO2 21 Blood Pressure Mean: 131 Progress Progress Note #1: Time: 13:17 Progress Note Patient is a little bit nauseous and feeling jittery and tremulous. Behavioral health has seen the patient. Patient would like to go voluntary for depression/SI and addiction. Behavioral health is going to attempt to find bed placement at [facility] in [facility]. I am going to give her a little bit of Ativan to help with her symptoms and a second liter of IV fluids. Progress Note #2: Time: 15:47 Progress Note Discussed with mental health, the behavioral health screener with [facility] stated that [facility] would have a bed available for the patient this week, and a couple of days after the patient has been medically detoxed. Their medical detox provider is on vacation and unavailable for the medical portion at [place]. I discussed the case with Dr. Cintron who is graciously agreed to admit the patient until she is medically cleared for placement there. She will be admitted inpatient for alcoholic ketosis, intoxication depression. CIWA protocol. Initial ECG Impression Date: Feb 24, 2022 Initial ECG Impression Time: 10:20 Initial ECG Rate: 118 Initial ECG Rhythm: S.Tach Initial ECG Impression: Nonspecific Changes (Nonspecific ST-T wave changes inferior laterally with inverted T waves) EKG : EKG Time: 13:49 Rate: 107 Rhythm: S.Tach Intervals: Normal Comment Patient has still sinus tachycardia, EKG demonstrates inversion of T waves in lead II along her telemetry. She has T wave inversion also in leads V345 and 6. No ST segment elevation or depression. Departure Impression Primary Impression: Alcoholic ketosis Additional Impressions: ETOH abuse Depression Qualified Codes: F32.A - Depression, unspecified Disposition: ADMITTED INPATIENT Condition: Stable Admissions Decision to Admit Reason: Admit from ER (General) Decision to Admit/Date: Feb 24, 2022 Time/Decision to Admit Time: 15:47 Departure-Patient Inst. Referrals: NO,LOCAL PHYSICIAN (PCP/Family) Primary Care Physician PASCUAL DAVIDSON MD Feb 24, 2022 10:26
[2022-02-24 10:27] LABS: BUN/CREATININE RATIO 19
[2022-02-24 10:28] LABS: SALICYLATE < 5.0 MG/DL (5.0-20.0)
[2022-02-24 10:29] LABS: ALANINE AMINOTRANSFERASE 34 U/L (0-55)
[2022-02-24] MEDS ORDERED: NS IV 1000 ML 1,000 ML IV SCH ×2 (10:30→12:45)
[2022-02-24] MEDS ORDERED: THIAMINE 100 MG (VITAMIN B-1) TAB PO ONE (10:30)
[2022-02-24 10:31] LABS: ACETAMINOPHEN < 10 UG/ML (10-30)
[2022-02-24 10:32] LABS: BILIRUBIN,URINE NEGATIVE (NEGATIVE); CLARITY,URINE CLEAR; COLOR,URINE YELLOW; GLUCOSE, URINE (UA) NEGATIVE (NEGATIVE); KETONES,URINE 1+ (NEGATIVE); LEUKOCYTE ESTERASE ,URINE NEGATIVE (NEGATIVE); NITRITE,URINE NEGATIVE (NEGATIVE); PROTEIN,URINE 1+ (NEGATIVE)
[2022-02-24 10:41] LABS: CREATINE KINASE 43 U/L (29-168)
[2022-02-24 10:44] LABS: AMPHETAMINE SCREEN, URINE NEGATIVE (NEGATIVE); BARBITURATE SCREEN URINE NEGATIVE (NEGATIVE); BENZODIAZEPINES SCREEN URINE NEGATIVE (NEGATIVE); CANNABINOID SCREEN, URINE NEGATIVE (NEGATIVE); COCAINE SCREEN URINE NEGATIVE (NEGATIVE); METHADONE STAT NEGATIVE (NEGATIVE); OPIATE SCREEN URINE NEGATIVE (NEGATIVE); OXYCODONE STAT NEGATIVE (NEGATIVE); PROPOXYPHENE STAT NEGATIVE (NEGATIVE); TRICYCLIC ANTIDEPRESSANTS SCRE NEGATIVE (NEGATIVE)
[2022-02-24 10:54] LABS: BACTERIA,URINE LARGE /HPF
[2022-02-24] MEDS ORDERED: LORazepam INJ 2 MG/ML (ATIVAN) VIAL IVP STA (13:20)
[2022-02-24 17:19] VITALS: BP_SYST 150; BP_SYST 178; BP_DIAS 122; BP_DIAS 81
[2022-02-24] MEDS ORDERED: RT-ALBUTEROL SULF 2.5 MG/3 ML PRE-MIX VIAL INH PRN (18:00)
[2022-02-24] MEDS ORDERED: D5 1/2 NS 1000 ML IV SOLUTION 1,000 ML IV PRN (18:00)
[2022-02-24] MEDS ORDERED: SENNA W/DOCUSATE (SENOKOT S) TABLET PO PRN (18:00)
[2022-02-24] MEDS ORDERED: ONDANSETRON 4 MG/2 ML (SDV) Z0FRAN IV PRN (18:00)
[2022-02-24] MEDS ORDERED: LORazepam INJ 2 MG/ML (ATIVAN) VIAL IM/IV PRN (18:00)
[2022-02-24] MEDS ORDERED: ANTACID SUSP 30 ML UDC (MYLANTA) PO PRN ×2 (18:00→19:15)
[2022-02-24] MEDS ORDERED: 1/2 NS IV SOLUTION 1,000 ML IV PRN (18:00)
[2022-02-24] MEDS ORDERED: LORazepam INJ 2 MG/ML (ATIVAN) VIAL IV PRN (18:00)
[2022-02-24] MEDS: MULTIVIT W/MINERALS TAB (THERAGRAN M) PO SCH (18:24)
[2022-02-24] MEDS: NS IV 1000 ML 1,000 ML IV SCH (18:25)
[2022-02-24] MEDS ORDERED: ACETAMINOPHEN 325 MG TABLET PO PRN (19:15)
[2022-02-24] MEDS ORDERED: polyethylene glycoL POWDER 17 GM (MIRALAX) PACK PO PRN (19:15)
[2022-02-24] MEDS ORDERED: MELATONIN 3 MG TABLET PO PRN (19:15)
[2022-02-24] MEDS ORDERED: diphenhydrAMINE 25 MG TAB (BENADRYL) PO PRN (19:15)
[2022-02-24] MEDS ORDERED: hydrALAZINE (APESOLINE) 20 MG/ML VIAL IV PRN (19:15)
[2022-02-24 19:27] VITALS: BP 139/82
[2022-02-24] MEDS ORDERED: ACETAMINOPHEN 325 MG TABLET ONE (20:01)
[2022-02-24] MEDS: ENOXAPARIN INJECTION 30 MG/0.3 ML SYR SC SCH (22:11)
[2022-02-25] VITALS (7 sets, daily range): BP systolic 128–151; BP diastolic 71–85
[2022-02-25] MEDS: NS IV 1000 ML 1,000 ML IV SCH ×3 (02:37→18:25)
[2022-02-25] MEDS: THIAMINE 100 MG (VITAMIN B-1) TAB PO SCH (05:57)
[2022-02-25] MEDS: MULTIVIT W/MINERALS TAB (THERAGRAN M) PO SCH (05:57)
[2022-02-25] MEDS: LORazepam 1 MG (ATIVAN) TAB PO PRN ×3 (05:57→18:25)
[2022-02-25] MEDS: FOLIC ACID 1 MG TAB PO SCH (05:57)
[2022-02-25] MEDS: MAGNESIUM 1 GM/100 ML IVPB 100 ML IV SCH (06:22)
[2022-02-25] MEDS: KCL 20 MEQ TAB (K-DUR) PO SCH ×2 (06:22→08:29)
[2022-02-25] MEDS: POTASSIUM CL 10MEQ/50ML IVPB 50 ML IV SCH (06:22)
[2022-02-25 06:47] LABS: POTASSIUM 3.2 MMOL/L (3.6-5.0)
[2022-02-25 06:48] LABS: CALCIUM 8.2 MG/DL (8.5-10.1)
[2022-02-25 06:53] LABS: CREATININE SERUM 0.64 MG/DL (0.60-1.30)
[2022-02-25 06:55] LABS: MAGNESIUM 1.5 MG/DL (1.6-2.4)
[2022-02-25] MEDS ORDERED: POT PHOS/NA PHOS (K-PHOS NEUTRAL) PO ONE (08:00)
[2022-02-25] MEDS ORDERED: FOLIC ACID 1 MG TAB PO SCH (09:00)
[2022-02-25] MEDS ORDERED: METO-333 PO (10:56)
--- NOTE | 2022-02-25 17:07 | History & Physical-Hospitalist ---
History of Present Illness HPI/Chief Complaint Aanis Leal is a 46 year old female with PMH alcohol dependence who presented with acute alcohol intoxication. She wants to quit drinking. She would like to enter an alcohol treatment program. She denies any history of alcohol withdrawal. She has been having some nausea and headache. She denies tremors. She had some suicidal ideation in the emergency room, but denies any at this time. She denies fevers. She denies chest pain. She denies shortness of breath. She denies abdominal pain. Source: patient Exam Limitations: no limitations Date Seen 02/25/22 Time Seen by a Provider: 12:10 Attending Physician No,Local Physician PCP Admitting Physician: Kaylah Bey MD Attending Physician: Kaylah Bey MD Referring Physician Date of Admission Feb 24, 2022 at 15:43 Home Medications & Allergies Home Medications Reviewed patient Home Medication Reconciliation performed by pharmacy medication reconciliations office automation technician and/or nursing. Patients Allergies have been reviewed. Allergies Allergies Coded Allergies No Known Drug Allergies (Unverified05/15/19) Past Intnqiy-Zhkqdw-Vilkbr Hx Patient Social History Tobacco Use?: Yes Tobacco type used: Cigars Smoking Status: Current Everyday Smoker Use of E-Cig and/or Vaping dev: No Substance use?: No Alcohol Use?: Yes Alcohol type: Hard Liquor Alcohol Frequency: Daily Additional Alcohol Comments: 1/2 Pint of bourbon/whiskey a day Pt feels they are or have been: No Immunizations Up To Date Date of Influenza Vaccine: Jun 07, 2013 Tetanus Booster (TDap): Unknown Seasonal Allergies Seasonal Allergies: No Current Status status: No Advance Directives: No Communicates: Signs, Verbally Primary Language: Pashto Preferred Spoken Language: Pashto Is interpretation needed?: No Implanted or Applied Medical D: None Past Medical History Surgeries: Abdominal, Appendectomy, Lumpectomy Kidney Infection Gastroesophageal Reflux Back Injury Loss of Vision: Denies Hearing Impairment: Denies Did You Recieve Any Treatments: No Blood Disorders: No Family Medical History No Pertinent Family Hx Review of Systems Constitutional: weakness EENTM: no symptoms reported Respiratory: no symptoms reported Cardiovascular: no symptoms reported Gastrointestinal: nausea Genitourinary: no symptoms reported Musculoskeletal: no symptoms reported Skin: no symptoms reported Psychiatric/Neurological: No Symptoms Reported Physical Exam Physical Exam Vital Signs Vital Signs - First Documented 02/24/22 09:39 Temp 35.9 Pulse 132 Resp 16 B/P (MAP) 150/122 (131) Pulse Ox 100 O2 Delivery Room Air Capillary Refill : Less Than 3 Seconds Height, Weight, BMI Height: 5'6.00" Weight: 94lbs. oz. 42.221048kb; 14.72 BMI Method:Actual General Appearance: No Apparent Distress, Thin HEENT: PERRL/EOMI, Pharynx Normal Neck: Normal Inspection, Supple Respiratory: Lungs Clear, Normal Breath Sounds, No Respiratory Distress Cardiovascular: Regular Rate, Rhythm, No Edema, No Murmur Gastrointestinal: Normal Bowel Sounds, Non Tender, Soft Extremity: Normal Inspection, Non Tender, No Pedal Edema Neurologic/Psychiatric: Alert, No Motor/Sensory Deficits, Depressed Affect Skin: Normal Color, Warm/Dry Results Results/Procedures Labs Laboratory Tests 02/24/22 09:53 02/25/22 06:18 Patient resulted labs reviewed. Assessment/Plan Admission Diagnosis Alcohol dependence with acute intoxication Admission Status: Inpatient Order (span 2 midnights) Reason for Inpatient Admission: EtOH withdrawal Assessment and Plan Alcohol dependence Alcohol intoxication Alcohol withdrawal [facility] protocol Social work consulted Planning for placement to [facility] Diagnosis/Problems Diagnosis/Problems (1) Alcohol dependence with intoxication Status: Acute Qualifiers: Complication of substance-induced condition: uncomplicated Qualified Codes: F10.220 - Alcohol dependence with intoxication, uncomplicated (2) Alcohol abuse with withdrawal, uncomplicated Status: Acute (3) Low BMI Status: Acute KAYLAH BEY MD Feb 25, 2022 17:07
[2022-02-25] MEDS: ENOXAPARIN INJECTION 30 MG/0.3 ML SYR SC SCH (19:35)
[2022-02-26] MEDS: LORazepam 1 MG (ATIVAN) TAB PO PRN ×3 (00:54→19:56)
[2022-02-26] MEDS: NS IV 1000 ML 1,000 ML IV SCH ×2 (01:44→11:00)
[2022-02-26 04:00] VITALS: BP 152/92
[2022-02-26] MEDS: MULTIVIT W/MINERALS TAB (THERAGRAN M) PO SCH (05:34)
[2022-02-26] MEDS: FOLIC ACID 1 MG TAB PO SCH (05:34)
[2022-02-26] MEDS: THIAMINE 100 MG (VITAMIN B-1) TAB PO SCH (05:34)
[2022-02-26 06:07] LABS: POTASSIUM 3.3 MMOL/L (3.6-5.0)
[2022-02-26 06:08] LABS: CALCIUM 8.2 MG/DL (8.5-10.1)
[2022-02-26] MEDS: POTASSIUM CL 10MEQ/50ML IVPB 50 ML IV SCH (06:08)
[2022-02-26] MEDS: KCL 20 MEQ TAB (K-DUR) PO SCH (06:11)
[2022-02-26 06:13] LABS: CREATININE SERUM 0.55 MG/DL (0.60-1.30); PHOSPHORUS 2.5 MG/DL (2.3-4.7)
[2022-02-26 06:15] LABS: MAGNESIUM 1.4 MG/DL (1.6-2.4)
[2022-02-26] MEDS ORDERED: KCL 20 MEQ TAB (K-DUR) PO ONE ×2 (06:15→08:15)
[2022-02-26] MEDS: MAGNESIUM 1 GM/100 ML IVPB 100 ML IV SCH ×3 (06:24→07:33)
[2022-02-26 08:01] VITALS: BP 150/89
[2022-02-26 12:41] VITALS: BP 136/86
[2022-02-26 15:23] VITALS: BP 138/93
--- NOTE | 2022-02-26 18:10 | Progress Note - Hospitalist ---
Subjective HPI/CC On Admission Date Seen by Provider: Feb 26, 2022 Time Seen by Provider: 10:25 Anais Leal is a 46 year old female with H alcohol dependence who presented with acute alcohol intoxication. She wants to quit drinking. She would like to enter an alcohol treatment program. She denies any history of alcohol withdrawa l. She has been having some nausea and headache. She denies tremors. She had some suicidal ideation in the emergency room, but denies any at this time. She denies fevers. She denies chest pain. She denies shortness of breath. She denies abdominal pain. Subjective/Events-last exam She is feeling well. She is not having any significant withdrawal symptoms. She is eating and drinking well. She has been up and moving. Objective Exam Vital Signs Vital Signs Date Time Temp Pulse Resp B/P (MAP) Pulse Ox O2 Delivery O2 Flow Rate FiO2 02/26/22 15:23 36.8 98 22 138/93 (108) 100 Room Air 02/24/22 17:19 21 Capillary Refill : Less Than 3 Seconds General Appearance: No Apparent Distress, Thin Respiratory: Lungs Clear, No Respiratory Distress Cardiovascular: Regular Rate, Rhythm, No Murmur Gastrointestinal: Normal Bowel Sounds, Soft Extremity: Normal Inspection, No Pedal Edema Neurologic/Psychiatric: Alert, Depressed Affect Skin: Normal Color, Warm/Dry Results/Procedures Lab Laboratory Tests 02/26/22 05:25 Patient resulted labs reviewed. Assessment/Plan Assessment and Plan Assess & Plan/Chief Complaint Alcohol dependence Alcohol intoxication Alcohol withdrawal [facility] protocol Social work consulted Planning for discharge to [facility] tomorrow Diagnosis/Problems Diagnosis/Problems (1) Alcohol dependence with intoxication Status: Acute Qualifiers: Complication of substance-induced condition: uncomplicated Qualified Codes: F10.220 - Alcohol dependence with intoxication, uncomplicated (2) Alcohol abuse with withdrawal, uncomplicated Status: Acute (3) Low BMI Status: Acute KILLIAN BEY MD Feb 26, 2022 18:10
[2022-02-26] MEDS ORDERED: HYDR50TA76 PO (18:13)
[2022-02-26] MEDS: ENOXAPARIN INJECTION 30 MG/0.3 ML SYR SC SCH (19:58)
[2022-02-26 20:00] VITALS: BP 147/87
[2022-02-26 23:17] VITALS: BP 155/97
[2022-02-27 03:46] VITALS: BP 146/90
[2022-02-27 05:49] LABS: CALCIUM 8.6 MG/DL (8.5-10.1)
[2022-02-27] MEDS: POTASSIUM CL 10MEQ/50ML IVPB 50 ML IV SCH (05:52)
[2022-02-27] MEDS: KCL 20 MEQ TAB (K-DUR) PO SCH (05:52)
[2022-02-27 05:54] LABS: CREATININE SERUM 0.54 MG/DL (0.60-1.30); PHOSPHORUS 3.5 MG/DL (2.3-4.7)
[2022-02-27 05:56] LABS: MAGNESIUM 1.9 MG/DL (1.6-2.4)
[2022-02-27] MEDS: MAGNESIUM 1 GM/100 ML IVPB 100 ML IV SCH (06:00)
[2022-02-27] MEDS: MULTIVIT W/MINERALS TAB (THERAGRAN M) PO SCH (06:04)
[2022-02-27] MEDS: FOLIC ACID 1 MG TAB PO SCH (06:04)
[2022-02-27] MEDS: THIAMINE 100 MG (VITAMIN B-1) TAB PO SCH (06:04)
[2022-02-27 08:19] VITALS: BP 138/82
[2022-02-27] MEDS: LORazepam 1 MG (ATIVAN) TAB PO PRN (08:42)
[2022-02-27 10:17] VITALS: BP 138/82
--- NOTE | 2022-02-27 17:08 | Discharge Summary ---
Discharge Summary Hospital Course Problems/Dx: (1) Alcohol dependence with intoxication Status: Acute Qualifiers: Qualified Codes: F10.220 - Alcohol dependence with intoxication, uncomplicated (2) Alcohol abuse with withdrawal, uncomplicated Status: Acute (3) Low BMI Status: Acute Hospital Course Date of Admission: Feb 24, 2022 at 15:43 Admission Diagnosis : Alcohol dependence with intoxication Family Physician/Provider: Nellie Bhagat Aprn Date of Discharge: 02/27/22 Discharge Diagnosis: Alcohol dependence with intoxication and uncomplicated alcohol withdrawal Hospital Course: Anais Leal is a 46 year old female with alcohol dependence who was admitted with acute intoxication and withdrawal. She had an uncomplicated, mild withdrawal. She was given a prescription for Hydroxyzine to treat anxiety. She was discharged to [facility] in stable condition. Labs and Pending Lab Test: Laboratory Tests 02/27/22 05:18: Sodium Level 137, Potassium Level 4.0, Chloride Level 103, Carbon Dioxide Level 25, Anion Gap 9, Blood Urea Nitrogen 7, Creatinine 0.54L, Estimat Glomerular Filtration Rate 115, BUN/Creatinine Ratio 13, Glucose Level 87, Calcium Level 8.6, Phosphorus Level 3.5, Magnesium Level 1.9 Microbiology 02/24/22 Urine Culture - Final, Complete Mixed Bacterial Kristie Home Meds Active Hydroxyzine HCl 50 Mg Tablet 50 Mg PO TID PRN 7 Days Reported Metoprolol Tartrate 25 Mg Tablet 12.5 Mg PO BID TAKES (25MG) TABS CHECK PULSE BEFORE TAKING AND DO NOT TAKE IF BELOW 60 BPM Assessment/Pt Instructions Discharged to [facility] Discharge Planning: >30 minutes discharge planning Discharge Instructions Discharge Diet: No Restrictions Activity as Tolerated: Yes Discharge Physical Examination Vital Signs Vital Signs Date Time Temp Pulse Resp B/P (MAP) Pulse Ox O2 Delivery O2 Flow Rate FiO2 02/27/22 10:17 36.7 87 17 138/82 98 Room Air 02/24/22 17:19 21 General Appearance: No Apparent Distress, Thin Respiratory: Lungs Clear, No Respiratory Distress Cardiovascular: Regular Rate, Rhythm, No Murmur Gastrointestinal: Normal Bowel Sounds, Non Tender, Soft Extremity: Normal Inspection, No Pedal Edema Skin: Normal Color, Warm/Dry Neurologic/Psychiatric: Alert, Depressed Affect Allergies: Coded Allergies: No Known Drug Allergies (Unverified , 05/15/19) Discharge Summary Date of Admission Feb 24, 2022 at 15:43 Date of Discharge Feb 27, 2022 at 10:17 Discharge Date: Feb 27, 2022 Discharge Time: 10:17 Admission Diagnosis Alcohol dependence with acute intoxication Discharge Diagnosis Alcohol dependence Alcohol intoxication Alcohol withdrawal (1) Alcohol dependence with intoxication Status: Acute Qualifiers: Qualified Codes: F10.220 - Alcohol dependence with intoxication, uncomplicated (2) Alcohol abuse with withdrawal, uncomplicated Status: Acute (3) Low BMI Status: Acute KILLIAN BEY MD Feb 27, 2022 17:08
== END 2022-02-27 10:17 | disposition short-term general hospital (02) | DRG 897 ==
LOC: EDUNIT# 09:30 → ER 09:31 → 4TH 15:43
PROVIDERS: ADMIT Internal Medicine; ATTEND Internal Medicine
DX: F10.239 Alcohol dependence with withdrawal, unspecified (principal); E88.89 Other specified metabolic disorders; Y90.6 Blood alcohol level of 120-199 mg/100 ml; F32.A Depression, unspecified; F17.210 Nicotine dependence, cigarettes, uncomplicated; Z20.822 Contact with and (suspected) exposure to COVID-19; K21.9 Gastro-esophageal reflux disease without esophagitis; F10.229 Alcohol dependence with intoxication, unspecified
CPT/HCPCS: 36415; 80048; 80053; 80306; 80320; 80329; 81000; 82550; 83735; 84100; 84484; 84703; 85025; 87088; 87636; 93005; 93041

== ENCOUNTER 2022-10-29 18:03 | Emergency (ER) | payer SELFPAY ==
[~2022-10-29] VITALS: Ht 162 cm; Wt 40.1 kg
[~2022-10-29 18:03] MED LIST changes: +HYDR50TA76 PO; +METO-333 PO
[2022-10-29] MEDS ORDERED: ONDANSETRON 4 MG/2 ML (SDV) Z0FRAN ONE (18:54)
[2022-10-29] MEDS ORDERED: morphine INJ 10 MG/ML 1ML (SYR OR VIAL) ONE (18:55)
[2022-10-29] MEDS ORDERED: NS IV 1000 ML 1,000 ML ONE (18:55)
--- NOTE | 2022-10-29 20:03 | ED General ---
General Chief Complaint: Cough/Cold/Flu Symptoms Stated Complaint: SINUS ISSUES, HEADACHE, NAUSEA, DIARRHEA Nursing Triage Note: PT ABM TO RM 9 PT CO OF COUGH, NOSE BURNING, SINUS MCLEAN, DIZZINESS, SHAKINESS, N/V/D ALL STARTED TODAY. PT IS A DAILY 1/2PT WHISKEY DRINKER STATES HAS NOT DRANK SINCE YESTERDAY Source of Information: Patient Exam Limitations: No Limitations History of Present Illness Date Seen by Provider: Oct 29, 2022 Time Seen by Provider: 23:13 Initial Comments 47-year-old female presents to the emergency department today for "sinus issues" eye itching dizziness shakiness nausea vomiting. Sinus issues started on thursday. n/v abd pain started yesterday. She has had chills but denies documented fevers. She is an admitted alcoholic and drinks 1/2 to 1 pint whiskey daily. She has not drank in a day and a half. She does describe some epigastric pain, sharp without radiation, aggravating or alleviating factors. Allergies and Home Medications Allergies Coded Allergies: No Known Drug Allergies (Unverified , 05/15/19) Patient Home Medication List Home Medication List Reviewed: Yes Hydroxyzine HCl (Hydroxyzine HCl) 50 Mg Tablet, 50 MG PO TID PRN for ANXIETY Prescribed by: KILLIAN BEY on 02/26/22 181 Metoprolol Tartrate (Metoprolol Tartrate) 25 Mg Tablet, 12.5 MG PO BID, (Reported) Entered as Reported by: RON SULLIVAN on 02/25/22 1056 Review of Systems Review of Systems Constitutional: dizziness EENTM: nose congestion, other (Sinus pressure) Respiratory: cough Cardiovascular: no symptoms reported Gastrointestinal: abdominal pain Genitourinary: no symptoms reported Musculoskeletal: no symptoms reported Skin: no symptoms reported Psychiatric/Neurological: No Symptoms Reported Hematologic/Lymphatic: No Symptoms Reported Past Iakdieh-Uizoed-Ijmswh Hx Patient Social History Tobacco Use?: Yes Tobacco type used: Cigarettes Smoking Status: Current Everyday Smoker Substance use?: No Alcohol Use?: Yes Alcohol type: Hard Liquor Alcohol Frequency: Daily Pt feels they are or have been: No Immunizations Up To Date Tetanus Booster (TDap): Unknown Seasonal Allergies Seasonal Allergies: No Past Medical History Surgery/Hospitalization HX: HTN, ALCOHOLIC Surgeries: Yes ("LESIONS REMOVED FROM OVARIES AND BREAST") Abdominal, Appendectomy, Lumpectomy Respiratory: No Cardiac: No Neurological: No Genitourinary: Yes Kidney Infection Gastrointestinal: Yes Gastroesophageal Reflux Musculoskeletal: Yes Back Injury Endocrine: No HEENT: No Loss of Vision: Denies Hearing Impairment: Denies Cancer: No Did You Recieve Any Treatments: No Psychosocial: No Integumentary: No Blood Disorders: No Family Medical History Reviewed Nursing Family Hx No Pertinent Family Hx Physical Exam Vital Signs Vital Signs - First Documented 10/29/22 18:10 Temp 35.6 Pulse 130 Resp 18 B/P (MAP) 196/106 (136) Pulse Ox 100 O2 Delivery Room Air Capillary Refill : Less Than 3 Seconds Height, Weight, BMI Height: 5'6.00" Weight: 94lbs. oz. 42.967958qm; 15.00 BMI Method:Actual General Appearance: No Apparent Distress, WD/WN Eyes: Bilateral Eye Normal Inspection, Bilateral Eye PERRL, Bilateral Eye EOMI HEENT: PERRL/EOMI, TMs Normal, Normal ENT Inspection, Pharynx Normal Neck: Full Range of Motion, Normal Inspection, Non Tender, Supple Respiratory: Chest Non Tender, Lungs Clear, Normal Breath Sounds, No Accessory Muscle Use Cardiovascular: No Murmur, Normal Peripheral Pulses, Tachycardia Gastrointestinal: Normal Bowel Sounds, No Organomegaly, Soft, Tenderness (Epigastric with voluntary guarding) Back: Normal Inspection, No CVA Tenderness, No Vertebral Tenderness Extremity: Normal Capillary Refill, Normal Inspection, Normal Range of Motion, Non Tender, No Calf Tenderness Neurologic/Psychiatric: Alert, Oriented x3, No Motor/Sensory Deficits, Normal Mood/Affect, reading professor II-XII Norm as Tested Skin: Normal Color, Warm/Dry Focused Exam Lactate Level 10/29/22 18:15: Lactic Acid Level 6.22*H 10/29/22 21:11: Lactic Acid Level 1.74 Lactic Acid Level Laboratory Tests Test 10/29/22 18:15 10/29/22 21:11 Lactic Acid Level 6.22 MMOL/L (0.50-2.00) *H 1.74 MMOL/L (0.50-2.00) Progress/Results/Core Measures Suspected Sepsis SIRS Temperature: Pulse: 130 Respiratory Rate: 18 Laboratory Tests 10/29/22 18:15: White Blood Count 5.1 Blood Pressure 196 /106 Mean: 136 10/29/22 18:15: Lactic Acid Level 6.22*H 10/29/22 21:11: Lactic Acid Level 1.74 Laboratory Tests 10/29/22 18:15: Creatinine 0.80, Platelet Count 265, Total Bilirubin 0.3 Results/Orders Lab Results Laboratory Tests Test 10/29/22 18:15 10/29/22 21:11 Range/Units White Blood Count 5.1 4.3-11.0 10^3/uL Red Blood Count 4.50 3.80-5.11 10^6/uL Hemoglobin 10.1 L 11.5-16.0 g/dL Hematocrit 32 L 35-52 % Mean Corpuscular Volume 71 L 80-99 fL Mean Corpuscular Hemoglobin 22 L 25-34 pg Mean Corpuscular Hemoglobin Concent 32 32-36 g/dL Red Cell Distribution Width 22.5 H 10.0-14.5 % Platelet Count 265 130-400 10^3/uL Mean Platelet Volume 9.8 9.0-12.2 fL Immature Granulocyte % (Auto) 0 % Neutrophils (%) (Auto) 60 42-75 % Lymphocytes (%) (Auto) 25 12-44 % Monocytes (%) (Auto) 12 0-12 % Eosinophils (%) (Auto) 2 0-10 % Basophils (%) (Auto) 1 0-10 % Neutrophils # (Auto) 3.1 1.8-7.8 10^3/uL Lymphocytes # (Auto) 1.3 1.0-4.0 10^3/uL Monocytes # (Auto) 0.6 0.0-1.0 10^3/uL Eosinophils # (Auto) 0.1 0.0-0.3 10^3/uL Basophils # (Auto) 0.0 0.0-0.1 10^3/uL Immature Granulocyte # (Auto) 0.0 0.0-0.1 10^3/uL Urine Test NEGATIVE NEGATIVE Sodium Level 135 135-145 MMOL/L Potassium Level 3.3 L 3.6-5.0 MMOL/L Chloride Level 97 L 98-107 MMOL/L Carbon Dioxide Level 19 L 21-32 MMOL/L Anion Gap 19 H 5-14 MMOL/L Blood Urea Nitrogen 13 7-18 MG/DL Creatinine 0.80 0.60-1.30 MG/DL Estimat Glomerular Filtration Rate 91 BUN/Creatinine Ratio 16 Glucose Level 273 H 70-105 MG/DL Lactic Acid Level 6.22 *H 1.74 0.50-2.00 MMOL/L Calcium Level 9.1 8.5-10.1 MG/DL Corrected Calcium 8.9 8.5-10.1 MG/DL Total Bilirubin 0.3 0.1-1.0 MG/DL Aspartate Amino Transf (AST/SGOT) 45 H 5-34 U/L Alanine Aminotransferase (ALT/SGPT) 25 0-55 U/L Alkaline Phosphatase 88 40-136 U/L Total Protein 7.2 6.4-8.2 GM/DL Albumin 4.3 3.2-4.5 GM/DL Lipase 71 8-78 U/L SARS-CoV-2 RNA (RT-PCR) Not Detected Not Detecte My Orders Orders - SÁNCHEZPAYAL DO Ondansetron Injection (Zofran Injectio (10/29/22 18:54) Morphine Injection (Morphine Injection (10/29/22 18:55) Ns Iv 1000 Ml (Sodium Chloride 0.9%) (10/29/22 18:55) Cbc With Automated Diff (10/29/22 18:55) Comprehensive Metabolic Panel (10/29/22 18:55) Lipase (10/29/22 18:55) Lactic Acid Analyzer (10/29/22 18:55) Covid 19 Inhouse Test (10/29/22 18:55) Hcg,Qualitative Urine (10/29/22 18:55) Blood Culture (10/29/22 18:55) Blood Culture (10/29/22 18:55) Ns Iv 1000 Ml (Sodium Chloride 0.9%) (10/29/22 20:30) Lorazepam Injection (Ativan Injection) (10/29/22 20:30) Ct Abdomen/Pelvis W (10/29/22 20:30) Medications Given in ED Current Medications Medications Dose Ordered Sig/Fritz Route Start Time Stop Time Status Last Admin Dose Admin Lorazepam 2 mg ONCE ONCE IVP 10/29/22 20:30 10/29/22 20:31 DC 10/29/22 20:27 2 MG Morphine Sulfate 10 mg STK-MED ONCE .ROUTE 10/29/22 18:55 10/29/22 19:50 DC 10/29/22 18:58 10 MG Ondansetron HCl 4 mg STK-MED ONCE .ROUTE 10/29/22 18:54 10/29/22 19:50 DC 10/29/22 18:58 4 MG Sodium Chloride 1,000 ml @ ud STK-MED ONCE .ROUTE 10/29/22 18:55 10/29/22 19:50 DC 10/29/22 18:58 999 MLS/HR Vital Signs/I&O 10/29/22 10/29/22 18:10 21:53 Temp 35.6 36.8 Pulse 130 105 Resp 18 16 B/P (MAP) 196/106 (136) 178/91 Pulse Ox 100 100 O2 Delivery Room Air Room Air 10/30/22 00:00 Intake Total 2000 ml Balance 2000 ml Capillary Refill : Less Than 3 Seconds Blood Pressure Mean: 136 Departure Communication (Admissions) Sinus symptoms consistent with URI type picture, possible allergies. The onset of her symptoms the weather did get quite warm and this is most likely etiology. Symptoms present for less than 7 days, no indication for antibiotics for sinusitis at this point. Given conservative treatment. I think her GI symptoms are likely related to alcohol withdrawal as she has not drank in a day and a half. She is not yet interested in completely quitting drinking. We treated her with Ativan here and her symptoms improved. Her tachycardia lessened though she did still remain slightly tachycardic. Tremor completely resolved and her clamminess resolved as well. She is having no more nausea. CT scan obtained due to the significance of her abdominal pain. This is negative. Her pain resolved with Ativan as well. She is discharged home in stable condition with supportive care and close follow-up. Impression Primary Impression: Alcohol abuse with withdrawal, uncomplicated Additional Impression: Elevated lactic acid level Disposition: 01 HOME, SELF-CARE Condition: Stable Departure-Patient Inst. Referrals: SILVERIO NASSAR APRN (PCP/Family) Primary Care Physician Patient Instructions: Alcohol Withdrawal (DC) Add. Discharge Instructions: I think your sinus symptoms are likely related to seasonal allergies. I recommend you use Flonase, 2 sprays in each nostril twice a day. Also recommend you use Parris or Claritin [id number]. It is helpful if you use 1 with a decongestant as well. Regarding her GI symptoms, I think at least part of this is related to alcohol withdrawal. I do not think there is any emergent medical condition at this time your symptoms have improved. You were dehydrated. This improved with IV fluids as well. Follow-up with your primary doctor in the next couple of days should your symptoms persist. Return to the emergency department for any severe concerns. All discharge instructions reviewed with patient and/or family. Voiced understanding. APYAL POZO DO Oct 29, 2022 20:03
[2022-10-29 20:07] LABS: POTASSIUM 3.3 MMOL/L (3.6-5.0)
[2022-10-29 20:08] LABS: ALBUMIN 4.3 GM/DL (3.2-4.5); BILIRUBIN,TOTAL 0.3 MG/DL (0.1-1.0); CALCIUM 9.1 MG/DL (8.5-10.1); CREATININE SERUM 0.8 MG/DL (0.60-1.30); TOTAL PROTEIN 7.2 GM/DL (6.4-8.2)
[2022-10-29 20:11] LABS: BASOPHILS % (AUTO) 1 % (0-10); EOSINOPHILS # (AUTO) 0.1 10^3/uL (0.0-0.3); EOSINOPHILS % (AUTO) 2 % (0-10); HEMATOCRIT 32 % (35-52); HEMOGLOBIN 10.1 g/dL (11.5-16.0); LYMPHOCYTES # (AUTO) 1.3 10^3/uL (1.0-4.0); LYMPHOCYTES % (AUTO) 25 % (12-44); MEAN CORPUSCULAR HEMOGLOBIN 22 pg (25-34); MEAN CORPUSCULAR HGB CONC 32 g/dL (32-36); MEAN CORPUSCULAR VOLUME 71 fL (80-99); MEAN PLATELET VOLUME 9.8 fL (9.0-12.2); MONOCYTES # (AUTO) 0.6 10^3/uL (0.0-1.0); MONOCYTES % (AUTO) 12 % (0-12); NEUTROPHILS # (AUTO) 3.1 10^3/uL (1.8-7.8); NEUTROPHILS % (AUTO) 60 % (42-75); PLATELET COUNT 265 10^3/uL (130-400); WHITE BLOOD COUNT 5.1 10^3/uL (4.3-11.0)
[2022-10-29] MEDS ORDERED: LORazepam INJ 2 MG/ML (ATIVAN) VIAL IVP ONE (20:30)
[2022-10-29] MEDS ORDERED: NS IV 1000 ML 1,000 ML IV SCH (20:30)
--- NOTE | 2022-10-29 21:40 | Diagnostic Imaging Report ---
CLINICAL INDICATIONS: Patient with abdominal pain with cough and flu/cold symptoms. EXAM: Axial CT scan of the abdomen and pelvis performed with 62 mL of Omnipaque 350 IV contrast. Sagittal and coronal reformatted images are created. Auto Exposure Controls were utilized during the CT exam to meet ALARA standards for radiation dose reduction. COMPARISON: CT scan of the abdomen and pelvis performed with contrast dated 05/15/2019. FINDINGS: The visualized lung bases are clear. Bones show no significant abnormality. There is diffuse low-density seen involving the liver concerning for diffuse fatty infiltration. Otherwise, the liver is unremarkable. The spleen, pancreas and gallbladder are unremarkable. Adrenal glands are unremarkable. Stable nonspecific prominence of the common bile duct with no obstructive process seen. Bile duct measures 8 mm similar to prior study. Both kidneys are unremarkable with no hydronephrosis, stone or mass. Bladder is fluid-filled and otherwise unremarkable. There is no intra-abdominal free air or free fluid. There are nondilated air-fluid levels seen throughout the colon from the rectum all the way to the cecum. There is no wall thickening. The appendix is not visualized on this exam and may be obscured by closely adjacent intra-abdominal structures. There is no significant fluid collection or inflammation adjacent to the cecum. There is no intestinal obstruction. There is no significant lymphadenopathy. The extra-abdominal and extra-pelvic soft tissue structures are unremarkable. IMPRESSION: 1: There are nondilated, air-fluid levels seen throughout the colon. There is no colonic wall thickening. These findings may be related to colitis and/or diarrhea. 2: The remainder of this exam shows no other concern for acute abnormality. 3: Stable prominent common bile duct with no obstructive process seen. Gallbladder is unremarkable. Dictated by: Dictated on workstation # [id number]
[2022-10-29 21:53] VITALS: BP 178/91
== END 2022-10-29 21:56 | disposition home or self-care (01) ==
LOC: EDUNIT# 18:03 → ER 18:05
DX: F10.139 Alcohol abuse with withdrawal, unspecified (principal); R74.02 Elevation of levels of lactic acid dehydrogenase [LDH]; R00.0 Tachycardia, unspecified; F17.210 Nicotine dependence, cigarettes, uncomplicated; Z20.822 Contact with and (suspected) exposure to COVID-19
CPT/HCPCS: 36415; 74177; 80053; 83605; 83690; 84703; 85025; 87040; 87636